=== PATIENT | female | born 1950 | race Caucasian/White ===

== ENCOUNTER 2016-11-24 12:26 | Observation (INO) | payer MEDICARE, BC ==
[~2016-11-24] VITALS: Ht 147.3 cm; Wt 141.0 kg
[~2016-11-24 12:26] MED LIST: ALBU8.5H3 INH; BENA10TA48 PO; CLON-379 PO; CLOT1L10 TOP; COLC0.6T6 PO; DULO60CA59 PO; FURO20TA3 PO; GABA300C16 PO; HYDR-2059 PO; IBUP-1542 PO; LORA-441 PO; LYRI200 PO; MECL25TA2 PO; METO100T13 PO; RESTOP4 BOTH EYES
[2016-11-24 12:30] VITALS: Ht 147.3 cm; Wt 141.0 kg
[2016-11-24] MEDS ORDERED: FUROSEMIDE 40 MG INJ IV STA (13:07)
[2016-11-24] MEDS ORDERED: NITROGLYCERIN 2% 1 GM OINT PKT TD STA (13:07)
[2016-11-24] MEDS ORDERED: ASPIRIN 81 MG TAB PO STA (13:07)
[2016-11-24 13:26] LABS: ADD SCAN DIFF NO
[2016-11-24 13:27] LABS: BASOPHIL # 0.1 10^3/ul (0.0-0.1); BASOPHILS % 0.7 % (0.0-2.0); EOSINOPHILS # 0.4 10^3/ul (0.0-0.5); EOSINOPHILS % 4.3 % (0.0-7.0); HEMATOCRIT 38.4 % (37.0-47.0); HEMOGLOBIN 12.7 g/dl (12.0-16.0); LYMPHOCYTES # 2.1 10^3/ul (0.8-2.9); LYMPHOCYTES % 24.4 % (15.0-51.0); MEAN CORPUSCULAR HEMOGLOBIN 30.8 pg (29.0-33.0); MEAN CORPUSCULAR HGB CONC 33.1 g/dl (32.0-37.0); MEAN PLATELET VOLUME 12.5 fl (7.4-10.4); MONOCYTE # 0.7 10^3/ul (0.3-0.9); MONOCYTES % 7.5 % (0.0-11.0); NEUTROPHIL # 5.4 10^3/ul (1.6-7.5); NEUTROPHILS % 62.8 % (39.0-77.0); PLATELET COUNT 185 10^3/UL (140-415); RED BLOOD COUNT 4.13 10^6/ul (4.20-5.40); RED CELL DISTRIBUTION WIDTH 13.2 % (11.5-14.5); WHITE BLOOD COUNT 8.6 10^3/ul (4.8-10.8)
[2016-11-24] MEDS ORDERED: NITROGLYCERIN (SL) 0.4 MG TAB SL PRN (13:30)
--- NOTE | 2016-11-24 13:35 | RADRPT ---
PROCEDURE: XR Chest. CLINICAL INDICATION: Chest pain. TECHNIQUE: Single frontal view. COMPARISON: 10/16/2015. FINDINGS: There are low lung volumes. There is mild diffuse bilateral interstitial pulmonary disease. The saúl ngs are otherwise clear. The heart size is normal. There is calcification in the aorta consistent with atherosclerosis. There is no pleural effusion. There is no pneumothorax. IMPRESSION: 1. Low lung volumes and mild interstitial disease bilaterally. This may indicate pulmonary edema. Clinical correlation advised. 2. Atherosclerosis. 3. Otherwise normal chest x-ray. RPTAT: QQ .Mulugeta Peña MD, Date Time Electronically viewed and signed by .Mulugeta Peña MD, on 11/24/2016 13:35 .R/
[2016-11-24 13:46] LABS: ANION GAP 9 (8-16); BLOOD UREA NITROGEN 13 mg/dl (7-20); CALCIUM 8.5 mg/dl (8.4-10.2); CARBON DIOXIDE 29 mmol/L (21-31); CHLORIDE 105 mmol/L (97-110); CREATININE 0.66 mg/dl (0.44-1.00); GLUCOSE 152 mg/dl (70-220); POTASSIUM 3.8 mmol/L (3.5-5.1); SODIUM 139 mmol/L (135-144)
[2016-11-24 13:53] LABS: INR 3.64; PROTIME 36.8 Sec (12.2-14.2); PT RATIO 2.9
[2016-11-24 14:00] LABS: PARTIAL THROMBOPLASTIN TIME 91.4 Sec (25.0-35.0)
[2016-11-24 14:05] LABS: TROPONIN-I < 0.012 ng/ml (0.00-0.12)
[2016-11-24] MEDS ORDERED: WARF10TA PO (14:20)
[2016-11-24] MEDS ORDERED: CILO50TA PO (14:21)
[2016-11-24] MEDS ORDERED: ROSU20TA PO (14:22)
[2016-11-24] MEDS ORDERED: PREG300C PO (14:23)
[2016-11-24] MEDS ORDERED: CYCL1DRO BOTH EYES (14:25)
[2016-11-24 14:30] VITALS: BP 158/90; RESP 18
[2016-11-24] MEDS ORDERED: ACETAMINOPHEN 325 MG TAB PO PRN (14:30)
[2016-11-24] MEDS ORDERED: ONDANSETRON 4 MG INJ IV PRN (14:30)
--- NOTE | 2016-11-24 15:22 | HP ---
Date/Time of Note Date/Time of Note DATE: 11/24/16 TIME: 15:03 Assessment/Plan VTE Prophylaxis VTE Prophylaxis Intervention: LMWH Lines/Catheters IV Catheter Type (from Nrsg): Saline Lock Assessment/Plan Assessment/Plan 66-year-old female who presents to the emergency room with bilateral extremity pain and swelling now managed as follows: 1. Acute CHF exacerbation 2. [place] LE edema likely 2/2 #1 3. Chronic neuropathy 4. CAD s/p LHC in the past 5. HTN 6. CAROL ANN PLAN : * admit tele / gentle diuresis / Complete ACS r/o / Cardio consult * resume home meds * Manage Coumadin Prophylaxis: Coumadin / Pepcid HPI/ROS Admit Date/Time Admit Date/Time 11/24/16 Hx of Present Illness 66-year-old female with a past medical history of high blood pressure, coronary artery disease, CHF amongst others who presents with bilateral lower extremity pain and swelling for the last 3 days. Patient does have chronic neuropathy, but this pain is said to be different from her regular pain. She has had some mild shortness of breath with exertion, but most of the time is fairly comfortable at rest. She denies chest pain, denies diaphoresis, denies palpitations. She also denies dysuria or hematuria, denies nausea vomiting. . ROS 12 point review if systems was done and pertinent findings are as noted. PMH/Family/Social Past Medical History * CAROL ANN * HTN * Morbid obesity * Chronic neuropathy Past Surgical History * lima knee replacement * C Family History Significant Family History: no pertinent family hx Social History Alcohol Use: none Smoking Status: Never smoker Exam/Review of Systems Vital Signs Vitals Laboratory Tests Test 11/24/16 13:20 White Blood Count 8.610^3/ul Red Blood Count 4.1310^6/ul Hemoglobin 12.7g/dl Hematocrit 38.4% Mean Corpuscular Volume 93.0fl Mean Corpuscular Hemoglobin 30.8pg Mean Corpuscular Hemoglobin Concent 33.1g/dl Red Cell Distribution Width 13.2% Platelet Count 51265^3/UL Mean Platelet Volume 12.5fl Neutrophils % 62.8% Lymphocytes % 24.4% Monocytes % 7.5% Eosinophils % 4.3% Basophils % 0.7% Nucleated Red Blood Cells % 0.0/100WBC Neutrophils # 5.410^3/ul Lymphocytes # 2.110^3/ul Monocytes # 0.710^3/ul Eosinophils # 0.410^3/ul Basophils # 0.110^3/ul Nucleated Red Blood Cells # 0.010^3/ul Prothrombin Time 36.8Sec Prothrombin Time Ratio 2.9 INR International Normalized Ratio 3.64 Activated Partial Thromboplast Time 91.4Sec Sodium Level 139mmol/L Potassium Level 3.8mmol/L Chloride Level 105mmol/L Carbon Dioxide Level 29mmol/L Anion Gap 9 Blood Urea Nitrogen 13mg/dl Creatinine 0.66mg/dl Glucose Level 152mg/dl Calcium Level 8.5mg/dl Troponin I < 0.012ng/ml Current Medications Medications (Trade) Dose Ordered Sig/Timbo Route PRN Reason Start Time Stop Time Status Last Admin Dose Admin Aspirin (Aspirin) 162 mg ONCE STAT PO 11/24/16 13:07 11/24/16 13:11 DC 11/24/16 13:29 162 MG Nitroglycerin (Nitroglycerin 2% Oint) 1 inch ONCE STAT TD 11/24/16 13:07 11/24/16 13:11 DC 11/24/16 13:30 1 INCH Nitroglycerin (Nitroglycerin (Sl Tab) 0.4 Mg) 1 tab Q5M UP TO 3 DOSES PRN SL CHEST PAIN 11/24/16 13:30 Furosemide (Lasix) 40 mg ONCE STAT IV 11/24/16 13:07 11/24/16 13:11 DC 11/24/16 13:29 40 MG Ondansetron HCl (Zofran Inj) 4 mg ER BRIDGE PRN IV NAUSEA AND/OR VOMITING 11/24/16 14:30 11/25/16 14:29 Acetaminophen (Tylenol Tab) 650 mg ER BRIDGE PRN PO MILD PAIN/FEVER 11/24/16 14:30 11/25/16 14:29 Vital Signs Date Time Temp Pulse Resp B/P Pulse Ox O2 Delivery O2 Flow Rate FiO2 11/24/16 12:30 98.7 114 24 202/94 97 Exam Exam Constitutional: alert, oriented, obesity Head: atraumatic, normocephalic Neck: non-tender, supple Respiratory: clear to auscultation, diminished breath sounds Cardiovascular: regular rate and rhythm Gastrointestinal: S/ NT / ND / +BS Extremities: + edema, good radial pulses Labs Result Diagram: 11/24/16 1320 11/24/16 1320 Procedures Procedures Laboratory Tests Test 11/24/16 13:20 White Blood Count 8.610^3/ul Red Blood Count 4.1310^6/ul Hemoglobin 12.7g/dl Hematocrit 38.4% Mean Corpuscular Volume 93.0fl Mean Corpuscular Hemoglobin 30.8pg Mean Corpuscular Hemoglobin Concent 33.1g/dl Red Cell Distribution Width 13.2% Platelet Count 66043^3/UL Mean Platelet Volume 12.5fl Neutrophils % 62.8% Lymphocytes % 24.4% Monocytes % 7.5% Eosinophils % 4.3% Basophils % 0.7% Nucleated Red Blood Cells % 0.0/100WBC Neutrophils # 5.410^3/ul Lymphocytes # 2.110^3/ul Monocytes # 0.710^3/ul Eosinophils # 0.410^3/ul Basophils # 0.110^3/ul Nucleated Red Blood Cells # 0.010^3/ul Prothrombin Time 36.8Sec Prothrombin Time Ratio 2.9 INR International Normalized Ratio 3.64 Activated Partial Thromboplast Time 91.4Sec Sodium Level 139mmol/L Potassium Level 3.8mmol/L Chloride Level 105mmol/L Carbon Dioxide Level 29mmol/L Anion Gap 9 Blood Urea Nitrogen 13mg/dl Creatinine 0.66mg/dl Glucose Level 152mg/dl Calcium Level 8.5mg/dl Troponin I < 0.012ng/ml Current Medications Medications (Trade) Dose Ordered Sig/Timbo Route PRN Reason Start Time Stop Time Status Last Admin Dose Admin Aspirin (Aspirin) 162 mg ONCE STAT PO 11/24/16 13:07 11/24/16 13:11 DC 11/24/16 13:29 162 MG Nitroglycerin (Nitroglycerin 2% Oint) 1 inch ONCE STAT TD 11/24/16 13:07 11/24/16 13:11 DC 11/24/16 13:30 1 INCH Nitroglycerin (Nitroglycerin (Sl Tab) 0.4 Mg) 1 tab Q5M UP TO 3 DOSES PRN SL CHEST PAIN 11/24/16 13:30 Furosemide (Lasix) 40 mg ONCE STAT IV 11/24/16 13:07 11/24/16 13:11 DC 11/24/16 13:29 40 MG Ondansetron HCl (Zofran Inj) 4 mg ER BRIDGE PRN IV NAUSEA AND/OR VOMITING 11/24/16 14:30 11/25/16 14:29 Acetaminophen (Tylenol Tab) 650 mg ER BRIDGE PRN PO MILD PAIN/FEVER 11/24/16 14:30 11/25/16 14:29 PROCEDURE: CTA Chest. CLINICAL INDICATION: Dyspnea TECHNIQUE: The study was performed utilizing a GE 64-slice multidetector CT scanner. Direct spiral 1 mm axial sections were obtained from the thoracic inlet to the upper abdomen with the use of 85 cc of Omnipaque 350 nonionic intravenous contrast material and reformatted at 3 mm. 3-D post processing multiplanar images are performed with sagittal and coronal re-formations. The images were reviewed on a PACS workstation. The CTDIvol is 50.66 mGy and the DLP is 573.65 mGycm. COMPARISON: Chest x-ray 10/16/[address] angiogram 06/04/2012 FINDINGS: The visualized base of the neck and bilateral thyroid lobes are normal. The mediastinum is remarkable for a vascular calcifications of the aorta. No evidence for aneurysms or dissection are present. The heart size is normal. No pericardial or pleural effusions are present. The central pulmonary arteries are without evidence for filling defect to suggest pulmonary embolus or thrombus. There is no evidence for an infiltrate. No abnormal soft tissue masses or nodular densities are visualized. The limited evaluation of the upper abdomen demonstrates normal appearance to the liver, spleen, pancreas, gallbladder, bilateral adrenal glands, and imaged kidneys. The osseous structures imaged demonstrate degenerative changes of the spine. IMPRESSION: 1. No CT evidence for pulmonary embolus. 2. Mild atherosclerotic vascular disease. 3. Mild degenerative changes of the spine. RPTAT: HDC .Joann Reyes MD, Date Time Electronically viewed and signed by .Joann Reyes MD, on 10/16/2015 18: 07 .C/ CC: DEANGELO GONZALEZ PROCEDURE: Lexiscan myocardial perfusion study CLINICAL INDICATION: 65 -year-old patient complaining of chest pain. TECHNIQUE: Lexiscan 0.4 mg intravenously separate acquisition gated myocardial perfusion SPECT using Tc 99m Myoview 34.1 mCi intravenously at stress and Tc-99m Myoview, 11.4 mCi intravenously at rest was performed using the rest/stress sequence. Poststress Myoview SPECT images were obtained in the supine position. COMPARISON: No prior studies. FINDINGS: Perfusion images reveal no evidence of perfusion defects. Lexiscan post stress gated SPECT images demonstrate no wall motion abnormalities. IMPRESSION: 1. No evidence of perfusion defects. 2. No wall motion abnormalities. 3. The left ventricle ejection fraction at stress is 65%. A call report was made to Dr. Galindo at 02:29 p.m. on October 17, 2015. RPTAT: HH .Leah Christensen MD, Date Time Electronically viewed and signed by .Leah Christensen MD, on 10/17/2015 14:31 .L/ CC: JAIMIE GALINDO MD Echocardiogram Report Patient Name: MADISYN SANCHEZ Gender: Female Date: 1950 Study Date: 17-Oct-2015 Spring Tacker: Fredrick Hudson RDCS Location: [id number] Ref. Physician: INOCENTE SMITH Quality: Technically Difficult Study Procedures: Transthoracic echocardiogram with complete 2D, M-Mode, and doppler examination. Indications: Chest Pain. 2D/M Mode Doppler Measurement Value Normal Ranges Measurement Value Normal Ranges LVIDd 2D 5.0 3.5 - 5.6 cm AV Peak Jhoan 1.0 m/sec LVIDs 2D 1.9 2.1 - 4.1 cm AV Peak PG 4.0 mmHg FS 2D 63.3 % AI Peak PG 36.0 mmHg LVPWd 2D 1.1 0.6 - 1.1 cm AI Peak Jhoan 3.0 m/sec IVSd 2D 0.9 0.6 - 1.1 cm AI PHT 800.0 msec IVS/LVPW 2D 0.9 LVOT Peak Jhoan 0.8 m/sec AoR Diam 2D 3.3 2.0 - 3.7 cm LVOT Peak PG 2.0 mmHg LA/Ao 2D 1 0 - 1 MV E Peak Jhoan 0.8 m/sec EDV 2D 128.0 cm3 MV A Peak Jhoan 1.0 m/sec ESV 2D 6.3 cm3 MV E/A 0.8 LA Dimen 2D 3.7 2.3 - 4.0 cm MV Decel Time 169 msec MV E/A 0.8 TR Peak Jhoan 2.3 m/sec TR Peak PG 22.0 mmHg RVSP 25.0 mmHg Findings Left Ventricle: Normal left ventricular systolic function. Normal left ventricular cavity size. Normal left ventricular wall thickness. Ejection fraction is visually estimated at 55 %. Tissue Doppler/Mitral Doppler indices are consistent with impaired relaxation (Stage I diastolic dysfunction). Right Ventricle: Normal right ventricular size. Normal right ventricular systolic function. Left Atrium: The left atrium is normal in size. Right Atrium: The right atrium is normal in size. Mitral Valve: Normal appearance and function of the mitral valve with trace physiologic regurgitation. Aortic Valve: No hemodynamically significant aortic stenosis by doppler. Aortic cusps appear mildly calcified. Mild to moderate aortic valve regurgitation. Tricuspid Valve: Normal appearance of the tricuspid valve. Estimated peak PA systolic pressure 25 mmHg. There is mild tricuspid regurgitation. Pulmonic Valve: Normal pulmonic valve appearance. Pericardium: Normal pericardium with no significant pericardial effusion. Aorta: Normal aortic root. IVC: Normal size and normal respiratory collapse consistent with normal right atrial pressure. Pulmonary Artery: Normal pulmonary artery size. Conclusions 1. Normal left ventricular systolic function. Normal left ventricular cavity size. Normal left ventricular wall thickness. Ejection fraction is visually estimated at 55 %. Tissue Doppler/Mitral Doppler indices are consistent with impaired relaxation (Stage I diastolic dysfunction). These segments of the LV are hypokinetic septum base segment and inferior base segment. 2. Normal appearance and function of the mitral valve with trace physiologic regurgitation. 3. No hemodynamically significant aortic stenosis by doppler. Aortic cusps appear mildly calcified. Mild to moderate aortic valve regurgitation. 4. Normal appearance of the tricuspid valve. Estimated peak PA systolic pressure 25 mmHg. There is mild tricuspid regurgitation. Electronically Signed By: Tomasz Rendon 17-Oct-2015 12:18:54 -0700 Patient Name: MADISYN SANCHEZ Study Date: 17-Oct-2015 [id number] PROCEDURE: XR Chest. CLINICAL INDICATION: Chest pain. TECHNIQUE: Single frontal view. COMPARISON: 10/16/2015. FINDINGS: There are low lung volumes. There is mild diffuse bilateral interstitial pulmonary disease. The lungs are otherwise clear. The heart size is normal. There is calcification in the aorta consistent with atherosclerosis. There is no pleural effusion. There is no pneumothorax. IMPRESSION: 1. Low lung volumes and mild interstitial disease bilaterally. This may indicate pulmonary edema. Clinical correlation advised. 2. Atherosclerosis. 3. Otherwise normal chest x-ray. RPTAT: QQ .Mulugeta Peña MD, MD Date Time Electronically viewed and signed by .Mulugeta Peña MD, MD on 11/24/2016 13:35 .R/ CC: SHARON MUNOZ MD EKG read by me: Rate/Rhythm: Regular rate and rhythm at a normal rate Intervals: Normal Impression: No evidence of ischemia or arrhythmia PROCEDURE: US bilateral lower extremity veins. CLINICAL INDICATION: Bilateral leg pain and swelling. TECHNIQUE: Multiple longitudinal and transverse images of the bilateral lower extremity veins were obtained with pedraza scale and color Doppler imaging. The common femoral vein, femoral vein, and popliteal vein were evaluated. 2D grayscale measurements with compression sonography, color Doppler, and pulsed Doppler with augmentation. COMPARISON: No prior studies are available for comparison. FINDINGS: The right common femoral, femoral and popliteal veins are normally compressible throughout. Color flow demonstrates normal filling of the vessels. Normal waveforms are visualized and there is normal response to augmentation. The left common femoral and popliteal veins are normally compressible throughout. Color flow demonstrates normal filling of the vessels. Normal waveforms are visualized and there is normal response to augmentation. The left femoral vein is not well seen proximally due to patient body habitus. The mid and distal portions are well seen and appear normal with normal flow and compressibility. IMPRESSION: 1. No evidence of deep vein thrombosis involving the visualized veins either lower extremity. 2. Left femoral vein not well seen proximally due to patient body habitus. RPTAT: QQ .Mulugeta Peña MD, MD Date Time Electronically viewed and signed by .Mulugeta Peña MD, on 11/24/2016 15:45 .R/ CC: SHARON MUNOZ MD, BOLATITO M. Nov 24, 2016 15:14
[2016-11-24] MEDS ORDERED: LABETALOL HCL 20MG INJ IV PRN (15:30)
[2016-11-24] MEDS ORDERED: ALBUTEROL 18 GM INHALER INH PRN (15:30)
--- NOTE | 2016-11-24 15:31 | ERA ---
ER Documentation Chief Complaint Date/Time DATE: 11/24/16 TIME: 15:29 Chief Complaint BILATERAL LEG SWELLING/PAIN X 3 DAYS HPI Patient is a 66-year-old female with CHF, hypertension, and high cholesterol who presents with lower extremity swelling. The patient has had bilateral lower extremity swelling since Thursday. She has a cough and shortness of breath. She denies chest pain. 3 years ago she was found to have fluid on her lungs. She has had no fevers. Upon review of old medical records this is the patient's seventh visit to the ER since 2010. ROS All systems reviewed and are negative except as per history of present illness. Medications Home Meds Reported Medications Cyclosporine (RESTASIS) 1 Each Droperette, 1 DROP BOTH EYES Q12, #1 BOX 11/24/16 Pregabalin* (Lyrica*) 300 Mg Capsule, 300 MG PO BID, CAP 11/24/16 Rosuvastatin Calcium* (Crestor*) 20 Mg Tablet, 20 MG PO QHS, #30 TAB 11/24/16 Cilostazol* (Cilostazol*) 50 Mg Tablet, 50 MG PO BID, TAB 11/24/16 Warfarin Sodium* (Coumadin*) 10 Mg Tablet, 10 MG PO DAILY, TAB 11/24/16 Clonidine Hcl* (Clonidine Hcl*) 0.1 Mg Tab, 0.1 MG PO BID Y for ELEVATED BLOOD PRESSURE, TAB 10/03/15 Metoprolol Succinate* (Toprol XL*) 100 Mg Tab.sr.24h, 100 MG PO Q12, #30 TAB 10/03/15 Benazepril Hcl* (Benazepril Hcl*) 10 Mg Tablet, 10 MG PO BID, #60 TAB 10/03/15 Furosemide* (Furosemide*) 20 Mg Tablet, 20 MG PO DAILY, #60 TAB 10/03/15 Colchicine* (Colcrys*) 0.6 Mg Tablet, 0.6 MG PO DAILY, TAB 10/03/15 Duloxetine Hcl* (Duloxetine Hcl*) 60 Mg Capsule.dr, 60 MG PO DAILY, #30 CAP 10/03/15 Gabapentin* (Gabapentin*) 300 Mg Capsule, 300 MG PO TID, #90 CAP 10/03/15 Albuterol Sulfate* (Proair HFA*) 8.5 Gm Hfa.aer.ad, 2 PUFF INH Q4H Y for WHEEZING AND SOB, #1 INHALER 10/03/15 Hydrocodone Bit-Acetaminophen* (Hydrocodone-APAP*) 10-325 Tablet, 1 TAB PO BID Y for PAIN, TAB 10/03/15 Discontinued Reported Medications Cyclosporine* (Restasis* Oph) 32 Ea Droperette, 1 DROP BOTH EYES Q12, #1 BOX 10/03/15 Ibuprofen* (Motrin*) 600 Mg Tab, 600 MG PO BID Y for PAIN, TAB 10/03/15 Pregabalin* (Lyrica*) 200 Mg Capsule, 200 MG PO BID, CAP 10/03/15 Clotrimazole* (Lotrimin*) 1%-10 Ml Solution, 1 APPLIC TOP BID, BOTTLE 10/03/15 Discontinued Scripts Meclizine Hcl* (Antivert*) 25 Mg Tablet, 25 MG PO Q6H Y for DIZZINESS, #20 TAB Prov:CARLOS,DEANGELO 10/03/15 Lorazepam* (Ativan*) 0.5 Mg Tablet, 0.5 MG PO Q8H Y for ANXIETY, #10 TAB Prov:CARLOS,DEANGELO 10/03/15 Allergies Allergies: Coded Allergies: No Known Drug Allergies (Verified Allergy, Mild, 11/24/16) PMhx/Soc History of Surgery: Yes ([place]. knee replacement, L heart cath) Anesthesia Reaction: No Hx Neurological Disorder: Yes (Neuropathy) Hx Respiratory Disorders: Yes (Asthma, nocturnal dyspnea) Hx Cardiac Disorders: Yes (HTN,CHF,CAD) Hx Psychiatric Problems: No Hx Miscellaneous Medical Probl: Yes (Anxiety, Depression,Obesity) Hx Alcohol Use: Yes (occasional, stopped 20 yrs ago) Hx Substance Use: No Hx Tobacco Use: No Smoking Status: Never smoker FmHx Family History: No diabetes Physical Exam Vitals Vital Signs Date Time Temp Pulse Resp B/P Pulse Ox O2 Delivery O2 Flow Rate FiO2 11/24/16 15:05 98 24 141/110 97 11/24/16 12:30 98.7 114 24 202/94 97 Physical Exam Const: Moderate distress secondary to shortness of breath Head: Atraumatic Eyes: Normal Conjunctiva ENT: Normal External Ears, Nose and Mouth. Neck: Full range of motion..~ No meningismus. Resp: Decreased breath sounds bilaterally Cardio: Regular rate and rhythm, no murmurs Abd: Soft, non tender, non distended. Normal bowel sounds Skin: No petechiae or rashes Back: No midline or flank tenderness Ext: Bilateral lower extremity edema Neur: Awake and alert Psych: Normal Mood and Affect Result Diagram: 11/24/16 1320 11/24/16 1320 Results 24 hrs Laboratory Tests Test 11/24/16 13:20 White Blood Count 8.610^3/ul Red Blood Count 4.1310^6/ul Hemoglobin 12.7g/dl Hematocrit 38.4% Mean Corpuscular Volume 93.0fl Mean Corpuscular Hemoglobin 30.8pg Mean Corpuscular Hemoglobin Concent 33.1g/dl Red Cell Distribution Width 13.2% Platelet Count 35278^3/UL Mean Platelet Volume 12.5fl Neutrophils % 62.8% Lymphocytes % 24.4% Monocytes % 7.5% Eosinophils % 4.3% Basophils % 0.7% Nucleated Red Blood Cells % 0.0/100WBC Neutrophils # 5.410^3/ul Lymphocytes # 2.110^3/ul Monocytes # 0.710^3/ul Eosinophils # 0.410^3/ul Basophils # 0.110^3/ul Nucleated Red Blood Cells # 0.010^3/ul Prothrombin Time 36.8Sec Prothrombin Time Ratio 2.9 INR International Normalized Ratio 3.64 Activated Partial Thromboplast Time 91.4Sec Sodium Level 139mmol/L Potassium Level 3.8mmol/L Chloride Level 105mmol/L Carbon Dioxide Level 29mmol/L Anion Gap 9 Blood Urea Nitrogen 13mg/dl Creatinine 0.66mg/dl Glucose Level 152mg/dl Calcium Level 8.5mg/dl Troponin I < 0.012ng/ml Current Medications Medications (Trade) Dose Ordered Sig/Timbo Route PRN Reason Start Time Stop Time Status Last Admin Dose Admin Aspirin (Aspirin) 162 mg ONCE STAT PO 11/24/16 13:07 11/24/16 13:11 DC 11/24/16 13:29 Nitroglycerin (Nitroglycerin 2% Oint) 1 inch ONCE STAT TD 11/24/16 13:07 11/24/16 13:11 DC 11/24/16 13:30 Nitroglycerin (Nitroglycerin (Sl Tab) 0.4 Mg) 1 tab Q5M UP TO 3 DOSES PRN SL CHEST PAIN 11/24/16 13:30 Furosemide (Lasix) 40 mg ONCE STAT IV 11/24/16 13:07 11/24/16 13:11 DC 11/24/16 13:29 Ondansetron HCl (Zofran Inj) 4 mg ER BRIDGE PRN IV NAUSEA AND/OR VOMITING 11/24/16 14:30 11/25/16 14:29 Acetaminophen (Tylenol Tab) 650 mg ER BRIDGE PRN PO MILD PAIN/FEVER 11/24/16 14:30 11/25/16 14:29 Labetalol HCl (Labetalol) 20 mg Q4H PRN IV SBP>170MMHG 11/24/16 15:30 Procedures/MDM Chest x-ray shows pulmonary edema per radiology. EKG read by me: Rate/Rhythm: Regular rate and rhythm at a normal rate Intervals: Normal Impression: No evidence of ischemia or arrhythmia Patient is a 66-year-old female presents with what appears to be an acute CHF exacerbation. She was given aspirin, nitroglycerin, and Lasix. I do believe the patient will require admission to a telemetry bed for further evaluation. I spoke with Dr. Calvo from the panel team. At this point I doubt pneumonia, pneumothorax, pulmonary embolism, or aortic dissection. Departure Diagnosis: Primary Impression: Swelling Additional Impression: Acute congestive heart failure Qualified Code: I50.9 - Acute congestive heart failure, unspecified congestive heart failure type Condition: SHARON Rizvi MD Nov 24, 2016 15:31
--- NOTE | 2016-11-24 15:45 | RADRPT ---
PROCEDURE: US bilateral lower extremity veins. CLINICAL INDICATION: Bilateral leg pain and swelling. TECHNIQUE: Multiple longitudinal and transverse images of the bilateral lower extremity veins were obtained with pedraza scale and color Doppler imaging. The common femoral vein, femoral vein, and popl iteal vein were evaluated. 2D grayscale measurements with compression sonography, color Doppler, and pulsed Doppler with augmentation. COMPARISON: No prior studies are available for comparison. FINDINGS: The right common femoral, femoral and popliteal veins are normally compressible throughout. Color f low demonstrates normal filling of the vessels. Normal waveforms are visualized and there is normal response to augmentation. The left common femoral and popliteal veins are normally compressible throughout. Color flow demons trates normal filling of the vessels. Normal waveforms are visualized and there is normal response to augmentation. The left femoral vein is not well seen proximally due to patient body habitus. Th e mid and distal portions are well seen and appear normal with normal flow and compressibility. IMPRESSION: 1. No evidence of deep vein thrombosis involving the visualized veins either lower extremity. 2. Left femoral vein not well seen proximally due to patient body habitus. RPTAT: QQ .Mulugeta Peña MD, Date Time Electronically viewed and signed by .Mulugeta Peña MD, on 11/24/2016 15:45 .R/
[2016-11-24 16:24] VITALS: TEMP 98.5
[2016-11-24 17:06] VITALS: PULSE 94
[2016-11-24 19:37] VITALS: BP 159/96; RESP 18
[2016-11-24 20:00] VITALS: BP 162/86; RESP 20
[2016-11-24 20:19] VITALS: PULSE 110
[2016-11-24 20:41] LABS: CREATINE KINASE 197 IU/L (23-200)
[2016-11-24] MEDS: FUROSEMIDE 40 MG INJ IV SCH (20:52)
[2016-11-24 20:53] LABS: CK-MB 1.48 ng/ml (0.0-2.4)
[2016-11-24] MEDS: PREGABALIN 100 MG CAP PO SCH (20:53)
[2016-11-24 20:54] LABS: TROPONIN-I < 0.012 ng/ml (0.00-0.12)
[2016-11-24] MEDS: BENAZEPRIL 5 MG TAB PO SCH (20:54)
[2016-11-24] MEDS: CYCLOSPORINE 0.05% OPH DROPERETTE BOTH EYES SCH (20:55)
[2016-11-24] MEDS: CILOSTAZOL 100 MG TAB PO SCH (20:59)
[2016-11-24] MEDS ORDERED: ATORVASTATIN 80 MG TAB PO SCH (21:00)
[2016-11-24] MEDS: HYDROCODONE/APAP (10/325) TAB PO PRN (21:02)
[2016-11-25] VITALS (9 sets, daily range): BP systolic 101–163; BP diastolic 54–81; PULSE 69–90; RESP 16–20
[2016-11-25 01:19] LABS: CREATINE KINASE 197 IU/L (23-200)
[2016-11-25 01:33] LABS: CK-MB 1.48 ng/ml (0.0-2.4)
[2016-11-25 01:40] LABS: TROPONIN-I < 0.012 ng/ml (0.00-0.12)
[2016-11-25] MEDS: HYDROCODONE/APAP (10/325) TAB PO PRN (04:13)
[2016-11-25] MEDS: PREGABALIN 100 MG CAP PO SCH (06:40)
[2016-11-25] MEDS: FUROSEMIDE 40 MG INJ IV SCH ×2 (08:12→17:51)
[2016-11-25] MEDS: CILOSTAZOL 100 MG TAB PO SCH (08:14)
[2016-11-25] MEDS: CYCLOSPORINE 0.05% OPH DROPERETTE BOTH EYES SCH (08:16)
[2016-11-25] MEDS: BENAZEPRIL 5 MG TAB PO SCH (08:16)
[2016-11-25] MEDS ORDERED: METOPROLOL (XL) 100 MG TAB PO SCH (09:00)
[2016-11-25] MEDS ORDERED: DULOXETINE 30 MG CAP DR PO SCH (09:00)
[2016-11-25 10:32] LABS: ADD SCAN DIFF NO
[2016-11-25 10:39] LABS: BASOPHILS % 0.4 % (0.0-2.0); EOSINOPHILS # 0.4 10^3/ul (0.0-0.5); EOSINOPHILS % 5.1 % (0.0-7.0); HEMATOCRIT 41.2 % (37.0-47.0); HEMOGLOBIN 13.3 g/dl (12.0-16.0); LYMPHOCYTES # 2.3 10^3/ul (0.8-2.9); LYMPHOCYTES % 29.8 % (15.0-51.0); MEAN CORPUSCULAR HEMOGLOBIN 30.4 pg (29.0-33.0); MEAN CORPUSCULAR HGB CONC 32.3 g/dl (32.0-37.0); MEAN CORPUSCULAR VOLUME 94.1 fl (82.0-101.0); MEAN PLATELET VOLUME 12.7 fl (7.4-10.4); MONOCYTE # 0.6 10^3/ul (0.3-0.9); MONOCYTES % 8.3 % (0.0-11.0); NEUTROPHIL # 4.3 10^3/ul (1.6-7.5); NEUTROPHILS % 56.1 % (39.0-77.0); PLATELET COUNT 214 10^3/UL (140-415); RED BLOOD COUNT 4.38 10^6/ul (4.20-5.40); RED CELL DISTRIBUTION WIDTH 13.2 % (11.5-14.5); WHITE BLOOD COUNT 7.7 10^3/ul (4.8-10.8)
[2016-11-25 10:53] LABS: INR 2.78; PROTIME 29.7 Sec (12.2-14.2); PT RATIO 2.3
[2016-11-25 10:58] LABS: CALCIUM 8.5 mg/dl (8.4-10.2); CREATININE 0.74 mg/dl (0.44-1.00); PHOSPHORUS 3.8 mg/dl (2.5-4.9)
[2016-11-25 11:01] LABS: PARTIAL THROMBOPLASTIN TIME 84.4 Sec (25.0-35.0)
--- NOTE | 2016-11-25 12:05 | CONS ---
Date/Time of Note Date/Time of Note DATE: 11/25/16 TIME: 12:03 Assessment/Plan Assessment/Plan Additional Assessment/Plan 1. Acute CHF exacerbation - con't diuresis, better now 2. [place] LE edema likely 2/2 #1 - Rx with diuretics now 3. Chronic neuropathy - stable 4. CAD s/p LHC in the past - no CP now, will follow 5. HTN - will Rx - will follow 6. CAROL ANN Consultation Date/Type/Reason Admit Date/Time Nov 24, 2016 at 14:29 Initial Consult Date 24 HR Interval Summary Free Text/Dictation No acute change - BP stable - con't Diureses ROS: No fever, no chills, no nausea, no vomiting, no diarrhea/constipation No recent weight changes No chest pain, no PND, no orthopnea - SOB better No dizziness, blurred vision No thirst, no heat or cold intolerance Exam/Review of Systems Vital Signs Vitals Vital Signs Date Time Temp Pulse Resp B/P Pulse Ox O2 Delivery O2 Flow Rate FiO2 11/25/16 11:58 98.2 69 18 101/54 96 11/24/16 16:24 Room Air Intake and Output 11/24/16 11/24/16 11/25/16 15:00 23:00 07:00 Intake Total 300 ml Balance 300 ml Exam General: WN/WD/NAD, AOx 2-3 HEENT: Unicetric/atraumatic/EOMI (follow commands) NECK: JVD elevated, no thyromegaly Lymph: no lymphadenopathy HEART: regular with no S3, II/ systolic murmur at apex LUNGS: Coarse sounds ABD: soft, NT, ND, +BS : Intact Neuro: non focal SKIN: chronic changes EXT: trace edema Results Result Diagram: 11/25/16 0949 11/25/16 0949 Results 24 hrs Laboratory Tests Test 11/24/16 13:20 11/24/16 19:50 11/25/16 00:25 11/25/16 09:44 White Blood Count 8.6 Red Blood Count 4.13 L Hemoglobin 12.7 Hematocrit 38.4 Mean Corpuscular Volume 93.0 Mean Corpuscular Hemoglobin 30.8 Mean Corpuscular Hemoglobin Concent 33.1 Red Cell Distribution Width 13.2 Platelet Count 185 Mean Platelet Volume 12.5 H Neutrophils % 62.8 Lymphocytes % 24.4 Monocytes % 7.5 Eosinophils % 4.3 Basophils % 0.7 Nucleated Red Blood Cells % 0.0 Neutrophils # 5.4 Lymphocytes # 2.1 Monocytes # 0.7 Eosinophils # 0.4 Basophils # 0.1 Nucleated Red Blood Cells # 0.0 Prothrombin Time 36.8 H 29.7 H Prothrombin Time Ratio 2.9 2.3 INR International Normalized Ratio 3.64 2.78 Activated Partial Thromboplast Time 91.4 *H 84.4 *H Sodium Level 139 Potassium Level 3.8 Chloride Level 105 Carbon Dioxide Level 29 Anion Gap 9 Blood Urea Nitrogen 13 Creatinine 0.66 Glucose Level 152 Calcium Level 8.5 Troponin I < 0.012 < 0.012 < 0.012 Creatine Kinase 197 197 Creatine Kinase Index 0.8 0.8 Creatinine Kinase MB (Mass) 1.48 1.48 Test 11/25/16 09:49 White Blood Count 7.7 Red Blood Count 4.38 Hemoglobin 13.3 Hematocrit 41.2 Mean Corpuscular Volume 94.1 Mean Corpuscular Hemoglobin 30.4 Mean Corpuscular Hemoglobin Concent 32.3 Red Cell Distribution Width 13.2 Platelet Count 214 Mean Platelet Volume 12.7 H Neutrophils % 56.1 Lymphocytes % 29.8 Monocytes % 8.3 Eosinophils % 5.1 Basophils % 0.4 Nucleated Red Blood Cells % 0.0 Neutrophils # 4.3 Lymphocytes # 2.3 Monocytes # 0.6 Eosinophils # 0.4 Basophils # 0.0 Nucleated Red Blood Cells # 0.0 Sodium Level 134 L Potassium Level 4.0 Chloride Level 94 #L Carbon Dioxide Level 37 H Anion Gap 7 L Blood Urea Nitrogen 16 Creatinine 0.74 Glucose Level 122 Calcium Level 8.5 Phosphorus Level 3.8 Magnesium Level 2.0 Medications Medications Current Medications Labetalol HCl (Labetalol) 20 mg Q4H PRN IV SBP>170MMHG; Start 11/24/16 at 15:30 Albuterol (Ventolin Hfa) 2 puff Q4H PRN INH WHEEZING AND SOB; Start 11/24/16 at 15:30 Benazepril HCl (Lotensin) 7.5 mg BID PO Last administered on 11/25/16 08:16; Admin Dose 7.5 MG; Start 11/24/16 at 21:00 Cilostazol (Pletal) 50 mg BID PO Last administered on 11/25/16 08:14; Admin Dose 50 MG; Start 11/24/16 at 21:00 Cyclosporine (Restasis) 1 drop Q12 BOTH EYES Last administered on 11/25/16 08: 16; Admin Dose 1 DROP; Start 11/24/16 at 21:00 Duloxetine HCl (Cymbalta) 60 mg DAILY PO Last administered on 11/25/16 08:14; Admin Dose 60 MG; Start 11/25/16 at 09:00 Furosemide (Lasix) 20 mg DAILY PO ; Start 11/26/16 at 09:00 Acetaminophen/ Hydrocodone Bitart ([place] (10325)) 1 tab BID PRN PO PAIN Last administered on 11/25/16 04:13; Admin Dose 1 TAB; Start 11/24/16 at 15:30 Metoprolol Succinate (Toprol Xl) 100 mg DAILY PO Last administered on 08:14; Admin Dose 100 MG; Start 11/25/16 at 09:00 Pregabalin (Lyrica) 300 mg BID PO Last administered on 11/25/16 06:40; Admin Dose 300 MG; Start 11/24/16 at 21:00 Warfarin Sodium (Coumadin) 7.5 mg DAILY@17 PO ; Start 11/25/16 at 17:00; Status Future Hold Atorvastatin Calcium (Lipitor) 80 mg QHS PO Last administered on 11/24/16 20: 53; Admin Dose 80 MG; Start 11/24/16 at 21:00 Furosemide (Lasix) 40 mg Q12 IV Last administered on 11/25/16 08:12; Admin Dose 40 MG; Start 11/24/16 at 21:00; Stop 11/25/16 at 21:01 JAIMIE BTEANCOURT MD Nov 25, 2016 12:05
[2016-11-25] MEDS ORDERED: POTA8CAP PO (13:46)
[2016-11-25] MEDS ORDERED: LAS20 PO (13:46)
[2016-11-25] MEDS ORDERED: COU75 PO (13:46)
[2016-11-25] MEDS ORDERED: GABA300C16 PO (13:46)
[2016-11-25] MEDS ORDERED: METO100T13 PO (13:46)
--- NOTE | 2016-11-25 13:47 | PDOCDIS ---
Discharge Instructions DIAGNOSIS Discharge Diagnosis CHF exacerbation Neuropathic pain CONDITION Patient Condition: Stable HOME CARE INSTRUCTIONS: Diet Instructions: Low Fat /Cholesterol ACTIVITY: Activity Restrictions: Slowly Increase Activity Rest between Activity FOLLOW UP/APPOINTMENTS Follow-up Plan followup with your PCP and CORAZON Pozo Nov 25, 2016 13:47
[2016-11-25] MEDS ORDERED: WARFARIN 7.5 MG TAB PO SCH (17:00)
--- NOTE | 2016-11-25 17:17 | RADRPT ---
Vent Rate: 77 bpm RR Interval: 0 msec TN Interval: 156 msec QRS Duration: 76 msec QT Interval: 426 msec QTC Interval: 482 msec P-R-T [place]: -9 - 12 - 26 degrees Normal sinus rhythm Cannot rule out Anterior infarct , age undetermined Abnormal ECG Electronically Signed By: Rogelio Morris [id number]
[2016-11-26] MEDS ORDERED: FUROSEMIDE 20 MG TAB PO SCH (09:00)
--- NOTE | 2016-11-27 18:43 | DS ---
Date/Time of Note Date/Time of Note DATE: 11/27/16 TIME: 18:41 Discharge Summary Admission/Discharge Info Admit Date/Time Nov 24, 2016 at 14:29 Discharge Date/Time Nov 25, 2016 at 18:23 Discharge Diagnosis CHF exacerbation Neuropathic pain Patient Condition: Stable Consults Cardiology: Josie . Hx of Present Illness 66-year-old female with a past medical history of high blood pressure, coronary artery disease, CHF amongst others who presents with bilateral lower extremity pain and swelling for the last 3 days. Patient does have chronic neuropathy, but this pain is said to be different from her regular pain. She has had some mild shortness of breath with exertion, but most of the time is fairly comfortable at rest. She denies chest pain, denies diaphoresis, denies palpitations. She also denies dysuria or hematuria, denies nausea vomiting. . Hospital Course Patient had called male with bilateral lower extremity pain shooting to her heels with lower extremity swelling. She was found to have CHF exacerbation likely causing edema which was worsening her chronic peripheral neuropathy. She was already on maximum dose of Lyrica as well as gabapentin for neuropathy prior to admission. She was diuresed with Lasix therapy and by day 2 of admission her pain had improved significantly as she was feeling much better. She was counseled on the need for compliance with Lasix therapy, per her family the patient chose to use Lasix whenever she felt like. She is encouraged to follow-up outpatient with her own primary care physician to further discuss therapies for peripheral neuropathy as well as with her publicity expert Dr. Rendon for continued management of her chronic congestive heart failure. She verbalized understanding. She was counseled on the need for weight loss and good diet, patient was noncompliant with healthy diet even while in the hospital. She is stable for outpatient follow-up. . Home Meds Active Scripts Potassium Chloride* (Potassium Chloride*) 8 Meq Capsule.er, 8 MEQ PO DAILY for 30 Days, CAP Prov:CORAZON FRANKS. 11/25/16 Furosemide (Lasix) 20 Mg Tab, 40 MG PO DAILY for 30 Days, TAB Prov:CORAZON FRANKS. 11/25/16 Warfarin Sodium (Coumadin) 7.5 Mg Tablet, 7.5 MG PO DAILY@17 for 14 Days, TAB Prov:CORAZON FRANKS. 11/25/16 Metoprolol Succinate* (Toprol XL*) 100 Mg Tab.sr.24h, 100 MG PO DAILY, #30 TAB Prov:CORAZON FRANKS. 11/25/16 Gabapentin* (Gabapentin*) 300 Mg Capsule, 450 MG PO TID, #90 CAP Prov:CORAZON FRANKS. 11/25/16 Reported Medications Cyclosporine (RESTASIS) 1 Each Droperette, 1 DROP BOTH EYES Q12, #1 BOX 11/24/16 Pregabalin* (Lyrica*) 300 Mg Capsule, 300 MG PO BID, CAP 11/24/16 Rosuvastatin Calcium* (Crestor*) 20 Mg Tablet, 20 MG PO QHS, #30 TAB 11/24/16 Cilostazol* (Cilostazol*) 50 Mg Tablet, 50 MG PO BID, TAB 11/24/16 Clonidine Hcl* (Clonidine Hcl*) 0.1 Mg Tab, 0.1 MG PO BID Y for ELEVATED BLOOD PRESSURE, TAB 10/03/15 Benazepril Hcl* (Benazepril Hcl*) 10 Mg Tablet, 10 MG PO BID, #60 TAB 10/03/15 Colchicine* (Colcrys*) 0.6 Mg Tablet, 0.6 MG PO DAILY, TAB 10/03/15 Duloxetine Hcl* (Duloxetine Hcl*) 60 Mg Capsule.dr, 60 MG PO DAILY, #30 CAP 10/03/15 Albuterol Sulfate* (Proair HFA*) 8.5 Gm Hfa.aer.ad, 2 PUFF INH Q4H Y for WHEEZING AND SOB, #1 INHALER 10/03/15 Hydrocodone Bit-Acetaminophen* (Hydrocodone-APAP*) 10-325 Tablet, 1 TAB PO BID Y for PAIN, TAB 10/03/15 Discontinued Reported Medications Warfarin Sodium* (Coumadin*) 10 Mg Tablet, 10 MG PO DAILY, TAB 11/24/16 Furosemide* (Furosemide*) 20 Mg Tablet, 20 MG PO DAILY, #60 TAB 10/03/15 Cyclosporine* (Restasis* Oph) 32 Ea Droperette, 1 DROP BOTH EYES Q12, #1 BOX 10/03/15 Ibuprofen* (Motrin*) 600 Mg Tab, 600 MG PO BID Y for PAIN, TAB 10/03/15 Pregabalin* (Lyrica*) 200 Mg Capsule, 200 MG PO BID, CAP 10/03/15 Clotrimazole* (Lotrimin*) 1%-10 Ml Solution, 1 APPLIC TOP BID, BOTTLE 10/03/15 Discontinued Scripts Meclizine Hcl* (Antivert*) 25 Mg Tablet, 25 MG PO Q6H Y for DIZZINESS, #20 TAB Prov:DEANGELO GONZALEZ 10/03/15 Lorazepam* (Ativan*) 0.5 Mg Tablet, 0.5 MG PO Q8H Y for ANXIETY, #10 TAB Prov:DEANGELO GONZALEZ 10/03/15 Follow-up Plan See hospital course . Primary Care Provider Not On Staff Doctor Time spent on discharge: > 30 minutes CORAZON FRANKS Nov 27, 2016 18:43
== END 2016-11-25 18:23 | disposition home or self-care (01) ==
LOC: E/R 12:26 → TEL 14:29
PROVIDERS: ADMIT Family Medicine; ATTEND Family Medicine
DX: I11.0 Hypertensive heart disease with heart failure (principal); I50.9 Heart failure, unspecified; I25.10 Atherosclerotic heart disease of native coronary artery without angina pectoris; Z98.61 Coronary angioplasty status; J45.909 Unspecified asthma, uncomplicated; G62.9 Polyneuropathy, unspecified; F41.1 Generalized anxiety disorder; E66.01 Morbid (severe) obesity due to excess calories; Z68.44 Body mass index [BMI] 60.0-69.9, adult; Z79.01 Long term (current) use of anticoagulants; Z96.653 Presence of artificial knee joint, bilateral
CPT/HCPCS: 36415; 71010; 80048; 82550; 82553; 83036; 83735; 84100; 84484; 85025; 85610; 85730; 93005; 93970; 96374; 99285; G0378; J1940

== ENCOUNTER 2017-01-18 13:02 | Emergency (ER) | payer BC, MEDICARE ==
[~2017-01-18] VITALS: Ht 157.5 cm; Wt 136.0 kg
[~2017-01-18 13:02] MED LIST changes: +CILO50TA PO; -CLOT1L10 TOP; +COU75 PO; +CYCL1DRO BOTH EYES; -FURO20TA3 PO; -IBUP-1542 PO; +LAS20 PO; -LORA-441 PO; -LYRI200 PO; -MECL25TA2 PO; +POTA8CAP PO; +PREG300C PO; -RESTOP4 BOTH EYES; +ROSU20TA PO
[2017-01-18 13:09] VITALS: Ht 157.5 cm; Wt 136.0 kg
== END 2017-01-18 16:28 | disposition left against medical advice (07) ==
LOC: FTE 13:02
DX: Z53.21 Procedure and treatment not carried out due to patient leaving prior to being seen by health care provider (principal)

== ENCOUNTER 2017-01-20 15:02 | Emergency (ER) | payer MEDICARE, OTHER ==
[~2017-01-20] VITALS: Ht 165.1 cm; Wt 120.0 kg
[2017-01-20 15:10] VITALS: Ht 165.1 cm; Wt 120.0 kg
[2017-01-20] MEDS ORDERED: HYDROmorphONE 1 MG/ML SYG IM STA (17:31)
[2017-01-20] MEDS ORDERED: ONDANSETRON (ODT) 4 MG TAB ODT STA (17:31)
--- NOTE | 2017-01-20 18:18 | RADRPT ---
PROCEDURE: CT LUMBAR SPINE WITHOUT CONTRAST: CLINICAL INDICATION: 66 years of age female. Trauma. Pain. . COMPARISON: None available. TECHNIQUE: CT of the lumbar spine was performed without intravenous contrast. Coronal and sagittal r eformatted images were obtained from the axial source images. Images were reviewed on a high-resolut [employer] PACS workstation. Dose information: Based on a 32 cm phantom, the estimated radiation dose (CTDIvol mGy) for each seri es in this exam is 47. The estimated cumulative dose (DLP mGy-cm) is 1504. One or more of the following dose reduction techniques were used: - Automated exposure control. - Adjustment of the mA and/or kV according to patient size. - Use of iterative reconstruction technique. FINDINGS: There are small rudimentary ribs at L1. Using this numbering system, there are 5 lumbar vertebra and spine is imaged from T12 to the sacrum. Alignment: Normal. Vertebrae: Vertebral bodies and posterior elements are intact without acute fracture. Vertebral body heights are maintained. Bone mineral density appears grossly normal. No suspicious lynne ne lesions. There are bulky anterior bridging osteophytes in the lower thoracic spine in keeping with DISH. Ther e is degenerative disc disease in the lumbar spine greatest at L5-S1 where there is disc space narro wing and vacuum phenomenon. There is bilateral facet joint arthritis with sclerosis and hypertrophy greatest at L4-5 and L5-S1. There is bilateral sacroiliac joint arthritis. Extravertebral soft tissues: Normal. Visualized abdomen and pelvis: Atherosclerosis aorta. No aneurysm. Additional comment: None. IMPRESSION: Negative for evidence of acute fracture or traumatic subluxation of the lumbar spine. Multilevel degenerative disc disease and facet joint arthritis as described. RPTAT: HCTS Physician Lisa Date Time Electronically viewed and signed by Physician Lisa on 01/20/2017 18:18 /
[2017-01-20] MEDS ORDERED: METH750T93 PO (19:22)
[2017-01-20] MEDS ORDERED: HYDR-902 PO (19:22)
--- NOTE | 2017-01-20 19:29 | ERD ---
ER Documentation Chief Complaint Date/Time DATE: 01/20/17 TIME: 19:25 Chief Complaint ian fall , on thursday has back pain HPI This is a 66-year-old female who was getting out of the bathtub when the wet floor was there and she slipped. She landed right on her left butt cheek and buttocks she is complaining of pain to her low back and left butt cheek. The patient says she slipped 4 days ago. The pain is sharp and worse with movement better with rest located midline no sciatica pain in the legs no anesthesia in the legs no loss of bowel or bladder. No weakness in the legs. Patient takes Coumadin and has a hematoma to the left buttock cheek. The patient is obese ROS All systems reviewed and are negative except as per history of present illness. Medications Home Meds Active Scripts Methocarbamol* (Robaxin*) 750 Mg Tablet, 750 MG PO TID, #30 TAB Prov:KRISTA SHENSTALECS A. DO 01/20/17 Hydrocodone/Acetaminophen ([place] 10-325 Tablet) 1 Each Tablet, 1 TAB PO Q6H Y for PAIN, #20 TAB Prov:KRISTA SHENSTALECS Neto DO 01/20/17 Potassium Chloride* (Potassium Chloride*) 8 Meq Capsule.er, 8 MEQ PO DAILY for 30 Days, CAP Prov:CORAZON FRANKS. 11/25/16 Furosemide (Lasix) 20 Mg Tab, 40 MG PO DAILY for 30 Days, TAB Prov:CORAZON FRANKS. 11/25/16 Warfarin Sodium (Coumadin) 7.5 Mg Tablet, 7.5 MG PO DAILY@17 for 14 Days, TAB Prov:CORAZON FRANKS. 11/25/16 Metoprolol Succinate* (Toprol XL*) 100 Mg Tab.sr.24h, 100 MG PO DAILY, #30 TAB Prov:CORAZON FRANKS 11/25/16 Gabapentin* (Gabapentin*) 300 Mg Capsule, 450 MG PO TID, #90 CAP Prov:CORAZON FRANKS. 11/25/16 Reported Medications Cyclosporine (RESTASIS) 1 Each Droperette, 1 DROP BOTH EYES Q12, #1 BOX 11/24/16 Pregabalin* (Lyrica*) 300 Mg Capsule, 300 MG PO BID, CAP 11/24/16 Rosuvastatin Calcium* (Crestor*) 20 Mg Tablet, 20 MG PO QHS, #30 TAB 11/24/16 Cilostazol* (Cilostazol*) 50 Mg Tablet, 50 MG PO BID, TAB 11/24/16 Clonidine Hcl* (Clonidine Hcl*) 0.1 Mg Tab, 0.1 MG PO BID Y for ELEVATED BLOOD PRESSURE, TAB 10/03/15 Benazepril Hcl* (Benazepril Hcl*) 10 Mg Tablet, 10 MG PO BID, #60 TAB 10/03/15 Colchicine* (Colcrys*) 0.6 Mg Tablet, 0.6 MG PO DAILY, TAB 10/03/15 Duloxetine Hcl* (Duloxetine Hcl*) 60 Mg Capsule.dr, 60 MG PO DAILY, #30 CAP 10/03/15 Albuterol Sulfate* (Proair HFA*) 8.5 Gm Hfa.aer.ad, 2 PUFF INH Q4H Y for WHEEZING AND SOB, #1 INHALER 10/03/15 Hydrocodone Bit-Acetaminophen* (Hydrocodone-APAP*) 10-325 Tablet, 1 TAB PO BID Y for PAIN, TAB 10/03/15 Allergies Allergies: Coded Allergies: No Known Drug Allergies (Verified Allergy, Mild, 11/24/16) PMhx/Soc History of Surgery: Yes Anesthesia Reaction: No Hx Neurological Disorder: No Hx Respiratory Disorders: No Hx Cardiac Disorders: Yes (HTN) Hx Psychiatric Problems: No Hx Alcohol Use: No Hx Substance Use: No Hx Tobacco Use: No Smoking Status: Never smoker FmHx Family History: No coronary disease Physical Exam Vitals Vital Signs Date Time Temp Pulse Resp B/P Pulse Ox O2 Delivery O2 Flow Rate FiO2 01/20/17 15:10 98.1 79 18 148/75 99 Physical Exam Const: Well-developed, well-nourished Head: Atraumatic, normocephalic Eyes: Normal Conjunctiva, PERRLA, EOMI, normal sclera, no nystagmus ENT: Normal External Ears, Nose and Mouth, moist mucus membranes. Neck: Full range of motion. No meningismus, no lymphadenopathy. Resp: Clear to auscultation bilaterally, no wheezing, rhonchi, rales Cardio: Regular rate and rhythm, no murmurs, S1 S2 present Abd: Soft, non tender x 4, non distended. Normal bowel sounds, no guarding or rebound, no pulsitile abdominal masses or bruits Skin: No petechiae or rashes, large ecchymosis to left buttocks. No signs of infection or cellulitis, no maculopapular rash Back: Midline lumbosacral tenderness Ext: No cyanosis, or edema, FROM x 4, normal inspection, neurovascularly intact x 4 Neur: Awake and alert, STR 5/5 x 4, sensation intact x 4, no focal findings, cerebellum intact Psych: Normal Mood and Affect Results 24 hrs Current Medications Medications (Trade) Dose Ordered Sig/Timbo Route PRN Reason Start Time Stop Time Status Last Admin Dose Admin Hydromorphone HCl (Dilaudid) 1 mg ONCE STAT IM 01/20/17 17:31 01/20/17 17:33 DC 01/20/17 17:41 Ondansetron HCl (Zofran Odt) 4 mg ONCE STAT ODT 01/20/17 17:31 01/20/17 17:33 DC 01/20/17 17:40 Procedures/MDM PROCEDURE: CT LUMBAR SPINE WITHOUT CONTRAST: CLINICAL INDICATION: 66 years of age female. Trauma. Pain. . COMPARISON: None available. TECHNIQUE: CT of the lumbar spine was performed without intravenous contrast. Coronal and sagittal reformatted images were obtained from the axial source images. Images were reviewed on a high-resolution PACS workstation. Dose information: Based on a 32 cm phantom, the estimated radiation dose ( CTDIvol mGy) for each series in this exam is 47. The estimated cumulative dose ( DLP mGy-cm) is 1504. One or more of the following dose reduction techniques were used: - Automated exposure control. - Adjustment of the mA and/or kV according to patient size. - Use of iterative reconstruction technique. FINDINGS: There are small rudimentary ribs at L1. Using this numbering system, there are 5 lumbar vertebra and spine is imaged from T12 to the sacrum. Alignment: Normal. Vertebrae: Vertebral bodies and posterior elements are intact without acute fracture. Vertebral body heights are maintained. Bone mineral density appears grossly normal. No suspicious bone lesions. There are bulky anterior bridging osteophytes in the lower thoracic spine in keeping with DISH. There is degenerative disc disease in the lumbar spine greatest at L5-S1 where there is disc space narrowing and vacuum phenomenon. There is bilateral facet joint arthritis with sclerosis and hypertrophy greatest at L4-5 and L5-S1. There is bilateral sacroiliac joint arthritis. Extravertebral soft tissues: Normal. Visualized abdomen and pelvis: Atherosclerosis aorta. No aneurysm. Additional comment: None. IMPRESSION: Negative for evidence of acute fracture or traumatic subluxation of the lumbar spine. Multilevel degenerative disc disease and facet joint arthritis as described. RPTAT: HCTS Physician Lisa Date Time Electronically viewed and signed by Errol Mane Physician on 01/20/2017 18: 18 CS/ CC: DINORA SHEN DO Departure Diagnosis: Primary Impression: Back pain Back pain location: low back pain Chronicity: acute Back pain laterality: midline Sciatica presence: without sciatica Qualified Code: M54.5 - Acute midline low back pain without sciatica Additional Impression: Hematoma Condition: Stable Patient Instructions: Back Pain (Acute Or Chronic), Hematoma DINORA SHEN DO Jan 20, 2017 19:29
[2017-01-20 19:40] VITALS: BP 125/65; PULSE 106; RESP 16
== END 2017-01-20 19:43 | disposition home or self-care (01) ==
LOC: FTE 15:02
DX: S30.0XXA Contusion of lower back and pelvis, initial encounter (principal); I10 Essential (primary) hypertension; W01.0XXA Fall on same level from slipping, tripping and stumbling without subsequent striking against object, initial encounter; Y92.9 Unspecified place or not applicable; Z79.01 Long term (current) use of anticoagulants
CPT/HCPCS: 72131; 96372; 99285; J1170

== ENCOUNTER 2017-09-26 17:01 | Emergency (ER) | END 2017-09-26 20:23 | disposition home or self-care (01) ==

== ENCOUNTER 2017-09-28 15:23 | Emergency (ER) | END 2017-09-28 22:45 | disposition home or self-care (01) ==

== ENCOUNTER 2017-12-31 17:14 | Emergency (ER) | END 2017-12-31 20:51 | disposition home or self-care (01) ==

== ENCOUNTER 2018-10-09 16:00 | Emergency (ER) | payer MEDICARE, OTHER ==
[~2018-10-09] VITALS: Ht 152.4 cm; Wt 110.0 kg
[~2018-10-09 16:00] MED LIST changes: -ALBU8.5H3 INH; +BENA10TA4 PO; -BENA10TA48 PO; +CILO100T PO; -CILO50TA PO; -COLC0.6T6 PO; -COU75 PO; +CRES20 PO; -CYCL1DRO BOTH EYES; +DIPH28.33 TP; +FAMO40TA5 PO; +FURO40TA4 PO; -HYDR-2059 PO; +HYDR-3980 PO; +IBUP-1542 PO; -LAS20 PO; +LYRI200 PO; +METO-336 PO; -METO100T13 PO; +POTA10TA37 PO; -POTA8CAP PO; -ROSU20TA PO; +TRAM50TA PO; +WARF10TA PO
[2018-10-09 16:03] VITALS: Ht 152.4 cm; Wt 110.0 kg
--- NOTE | 2018-10-09 16:27 | ERD ---
ER Documentation Chief Complaint Chief Complaint ABD PAIN SINCE THIS MORNING HPI 68-year-old woman with a history of cholelithiasis and obesity presents with right upper quadrant abdominal pain similar to previous episodes and some nausea but denies vomiting. Patient has had cholelithiasis in the past but has not yet followed up with a surgeon. Patient denies blood per rectum or melena, no weight loss, no fevers or chills, no chest pain or shortness of breath. ROS All systems reviewed and are negative except as per history of present illness. Medications Home Meds Active Scripts Oxycodone HCl/Acetaminophen (Percocet 5-325 mg Tablet) 1 Each Tablet, 1 EACH PO TID PRN for PAIN LEVEL 6-10, #9 TAB Prov:LUÍS GOLEDN MD 10/09/18 Ondansetron Hcl* (Zofran*) 4 Mg Tablet, 4 MG PO Q8H PRN for NAUSEA AND/OR VOMITING, #30 TAB Prov:LUÍS GOLDEN MD 10/09/18 Cephalexin* (Keflex*) 500 Mg Capsule, 500 MG PO QID for 5 Days, CAP Prov:LUÍS GOLDEN MD 10/09/18 Naproxen* (Naprosyn*) 500 Mg Tablet, 500 MG PO BID PRN for PAIN AND/OR INFLAMMATION, #30 TAB Prov:LUÍS GOLDEN MD 10/09/18 Diphenhydramine Hcl/Zinc Acet (Benadryl Itch Stopping Crm) 28.3 Gm Cream.gm., 1 APPLIC TP TID, #1 TUB Prov:JAYCE BLAIR PA-C 12/31/17 Tramadol Hcl* (Ultram*) 50 Mg Tablet, 50 MG PO Q6H PRN for PAIN, #10 TAB Prov:BERT LAMB MD 09/28/17 Reported Medications Cilostazol* (Cilostazol*) 100 Mg Tablet, 100 MG PO BID, TAB 09/28/17 Duloxetine Hcl* (Duloxetine Hcl*) 60 Mg Capsule.dr, 60 MG PO DAILY, #30 CAP 09/28/17 Pregabalin* (Lyrica*) 300 Mg Capsule, 300 MG PO NEEDED, CAP 09/28/17 Pregabalin* (Lyrica*) 200 Mg Capsule, 200 MG PO NEEDED, CAP 09/28/17 Rosuvastatin Calcium* (Crestor*) 20 Mg Tablet, 20 MG PO QHS, #30 TAB 09/28/17 Hydrocodone/Acetaminophen ([place] 10-325 Tablet) 1 Each Tablet, 1 EACH PO NEEDED, TAB 09/28/17 Gabapentin* (Gabapentin*) 300 Mg Capsule, 300 MG PO DAILY, #60 CAP 09/28/17 Metoprolol Succinate* (Toprol XL*) 100 Mg Tab.sr.24h, 100 MG PO DAILY, #30 TAB 09/28/17 Benazepril Hcl* (Benazepril Hcl*) 10 Mg Tablet, 10 MG PO DAILY, #30 TAB 09/28/17 Famotidine* (Famotidine*) 40 Mg Tablet, 40 MG PO HS, #30 TAB 09/28/17 Ibuprofen* (Ibuprofen*) 600 Mg Tablet, 600 MG PO Q6H, TAB 09/28/17 Furosemide* (Furosemide*) 40 Mg Tablet, 40 MG PO DAILY, TAB 09/28/17 Warfarin Sodium* (Coumadin*) 10 Mg Tablet, 10 MG PO DAILY, TAB 09/28/17 Clonidine Hcl* (Clonidine Hcl*) 0.1 Mg Tab, 0.1 MG PO DAILY PRN for NEEDED, TAB 09/28/17 Potassium Chloride* (K-Dur*) 10 Meq Tab.prt.sr, 10 MEQ PO DAILY, TAB 09/28/17 Allergies Allergies: Coded Allergies: No Known Drug Allergies (Verified Allergy, Mild, 10/09/18) PMhx/Soc history of hypertension, cholelithiasis, CHF, hyperlipidemia, history of DVT most current Doppler ultrasound was negative for deep vein thrombosis of the lower extremities, bilateral knee replacements, morbid obesity, peripheral neuropathy History of Surgery: No Anesthesia Reaction: No Hx Neurological Disorder: No Hx Respiratory Disorders: No Hx Cardiac Disorders: Yes (HTN, CHF) Hx Psychiatric Problems: No Hx Miscellaneous Medical Probl: Yes (GALL STONES ) Hx Alcohol Use: No Hx Substance Use: No Hx Tobacco Use: No Physical Exam Vitals Vital Signs Date Temp Pulse Resp B/P (MAP) Pulse Ox O2 O2 Flow FiO2 Time Delivery Rate 10/09/18 98.2 75 18 121/57 98 Room Air 17:36 (78) 10/09/18 98.1 83 20 151/79 100 Room Air 16:30 (103) 10/09/18 98.1 82 18 168/113 99 16:03 (131) Physical Exam Const: No acute distress, afebrile Head: Atraumatic Eyes: Normal Conjunctiva ENT: Normal External Ears, Nose and Mouth. Neck: Full range of motion. No meningismus. Resp: Clear to auscultation bilaterally Cardio: Regular rate and rhythm, no murmurs Abd: Soft, non tender, non distended. Skin: No petechiae or rashes Back: No midline or flank tenderness Ext: No cyanosis, or edema Neur: Awake and alert x3, no focal deficits or facial asymmetry Psych: Normal Mood and Affect Result Diagram: 10/09/18 1622 10/09/18 1622 Results 24 hrs Laboratory Tests Test 10/09/18 16:22 10/09/18 16:32 White Blood Count 11.9 10^3/ul Red Blood Count 4.56 10^6/ul Hemoglobin 13.1 g/dl Hematocrit 42.3 % Mean Corpuscular Volume 92.8 fl Mean Corpuscular Hemoglobin 28.7 pg Mean Corpuscular Hemoglobin Concent 31.0 g/dl Red Cell Distribution Width 13.6 % Platelet Count 217 10^3/UL Mean Platelet Volume 13.6 fl Immature Granulocytes % 0.300 % Neutrophils % 67.1 % Lymphocytes % 22.5 % Monocytes % 7.3 % Eosinophils % 2.4 % Basophils % 0.4 % Nucleated Red Blood Cells % 0.0 /100WBC Immature Granulocytes # 0.040 10^3/ul Neutrophils # 8.0 10^3/ul Lymphocytes # 2.7 10^3/ul Monocytes # 0.9 10^3/ul Eosinophils # 0.3 10^3/ul Basophils # 0.1 10^3/ul Nucleated Red Blood Cells # 0.0 10^3/ul Sodium Level 143 mmol/L Potassium Level 4.0 mmol/L Chloride Level 103 mmol/L Carbon Dioxide Level 32 mmol/L Anion Gap 8 Blood Urea Nitrogen 17 mg/dl Creatinine 0.78 mg/dl Est Glomerular Filtrat Rate mL/min > 60 mL/min Glucose Level 92 mg/dl Calcium Level 9.0 mg/dl Total Bilirubin 0.4 mg/dl Direct Bilirubin 0.00 mg/dl Indirect Bilirubin 0.4 mg/dl Aspartate Amino Transf (AST/SGOT) 22 IU/L Alanine Aminotransferase (ALT/SGPT) 16 IU/L Alkaline Phosphatase 87 IU/L Total Protein 7.7 g/dl Albumin 4.3 g/dl Globulin 3.40 g/dl Albumin/Globulin Ratio 1.26 Lipase 52 U/L Bedside Urine pH (LAB) 5.5 Bedside Urine Protein (LAB) Negative Bedside Urine Glucose (UA) Negative Bedside Urine Ketones (LAB) Negative Bedside Urine Blood 1+ Bedside Urine Nitrite (LAB) Negative Bedside Urine Leukocyte Esterase (L 1+ Current Medications Medications Dose Sig/Timbo Start Time Status Last (Trade) Ordered Route PRN Stop Time Admin Dose Reason Admin Sodium 500 ml @ Q1H STAT 10/09/18 DC 10/09/18 Chloride 500 mls/hr IV 16:32 16:42 10/09/18 17:31 Ondansetron 4 mg ONCE STAT 10/09/18 DC 10/09/18 HCl (Zofran IV 16:32 16:42 Inj) 10/09/18 16:33 Ketorolac 15 mg ONCE STAT 10/09/18 DC 10/09/18 Tromethamine IV 16:32 16:43 (Toradol) 10/09/18 16:33 Cephalexin 500 mg ONCE ONCE 10/09/18 DC 10/09/18 (Keflex) PO 17:30 17:33 10/09/18 17:31 Procedures/MDM IV line was established 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 Patient was afebrile I administered 500 cc normal saline IV, Toradol 15 mg IV x1, Zofran 4 mg IV with resolution of pain Urine analysis was concerning for infection I treated her here with cephalexin 500 mg p.o. x1 CBC and electrolytes are normal, liver function tests were normal Patient has no signs or symptoms or laboratory evidence of hepatobiliary obstruction and her pain is resolved, she looks well and will be discharged with analgesics and antibiotics for UTI, I also gave her referrals to nearby surgeons. Differential diagnoses considered, included but not limited to acute coronary syndrome, pulmonary embolism, aortic dissection, abdominal aortic aneurysm, sepsis, stroke, meningitis, encephalitis, pneumonia, appendicitis, cholecystitis, bowel obstruction, pyelonephritis, nephrolithiasis, cystitis, as well as metabolic, hematologic, and electrolyte abnormalities. As well as abscess, cellulitis, fractures, and dislocations. Patient feels much better at this time, and vital signs are normal, symptoms have improved. I did give strict instructions to return to the ED if symptoms continue or worsen, patient will otherwise follow-up with primary care physician. Patient understood instructions and agreed to plan. Disclaimer: Inadvertent spelling and grammatical errors are likely due to EHR/dictation software use and do not reflect on the overall quality of patient care. Also, please note that the electronic time recorded on this note does not necessarily reflect the actual time of the patient encounter. Departure Diagnosis: Primary Impression: Cholelithiasis Cholelithiasis location: gallbladder Cholecystitis presence: without c holecystitis Biliary obstruction: without biliary obstruction Qualified Codes: K80.20 - Calculus of gallbladder without cholecystitis without obstruction Additional Impression: Acute UTI Condition: Good LUÍS GOLDEN MD October 09, 2018 16:27
[2018-10-09] MEDS ORDERED: ONDANSETRON 4 MG INJ IV STA (16:32)
[2018-10-09] MEDS ORDERED: SOD CHLORIDE 0.9% 500 ML IV STA (16:32)
[2018-10-09] MEDS ORDERED: KETOROLAC 15 MG INJ IV STA (16:32)
[2018-10-09] MEDS ORDERED: CEPHALEXIN 500 MG CAP PO ONE (17:30)
[2018-10-09] MEDS ORDERED: NAPR-985 PO (17:33)
[2018-10-09] MEDS ORDERED: OXYC-279 PO (17:33)
[2018-10-09] MEDS ORDERED: CEPH-443 PO (17:33)
[2018-10-09] MEDS ORDERED: ONDA4TAB8 PO (17:33)
[2018-10-09 17:36] VITALS: BP 121/57; PULSE 75; RESP 18
== END 2018-10-09 18:00 | disposition home or self-care (01) ==
LOC: E/R 16:00
DX: K80.20 Calculus of gallbladder without cholecystitis without obstruction (principal); N39.0 Urinary tract infection, site not specified; I11.0 Hypertensive heart disease with heart failure; I50.9 Heart failure, unspecified; E66.01 Morbid (severe) obesity due to excess calories; Z68.42 Body mass index [BMI] 45.0-49.9, adult; Z79.01 Long term (current) use of anticoagulants; Z96.653 Presence of artificial knee joint, bilateral
CPT/HCPCS: 80053; 81003; 83690; 85025; J1885; J2405; J7040; 36415; 96361; 96374; 96375

== ENCOUNTER 2018-10-27 16:04 | Observation (INO) | payer MEDICARE, OTHER ==
[~2018-10-27] VITALS: Ht 152.4 cm; Wt 137.2 kg
[~2018-10-27 16:04] MED LIST changes: +CEPH-443 PO; +NAPR-985 PO; +ONDA4TAB8 PO; +OXYC-279 PO
--- NOTE | 2018-10-27 17:08 | ERD ---
ER Documentation Chief Complaint Chief Complaint L CP HPI The patient is a 68-year-old female, presenting to the ER because of left-sided chest pain for about a month, no aggravating/relieving factors, the pain is getting worse, denies similar symptoms previously, denies chest pain with vomiting/radiation/exertion/diaphoresis, dyspnea, abdominal pain, vomiting, dysuria, diarrhea. She does not smoke nor drink Medical history: Dyslipidemia, hypertension, CAD, history of CHF, cholelithiasis, history of DVT Past surgical history: Bilateral knee arthroplasty ROS All systems reviewed and are negative except as per history of present illness. Medications Home Meds Reported Medications Atorvastatin* (Atorvastatin*) 40 Mg Tablet, 40 MG PO QHS, #30 TAB 10/27/18 Potassium Chloride* (K-Dur*) 10 Meq Tab.prt.sr, 10 MEQ PO DAILY, TAB 10/27/18 Metoprolol Succinate* (Toprol XL*) 100 Mg Tab.sr.24h, 100 MG PO BID, #30 TAB 10/27/18 Furosemide* (Lasix*) 20 Mg Tablet, 20 MG PO DAILY, TAB 10/27/18 Warfarin Sodium* (Coumadin*) 10 Mg Tablet, 10 MG PO DAILY, TAB 10/27/18 Hydralazine Hcl* (Hydralazine Hcl*) 25 Mg Tab, 25 MG PO TID PRN for ELEVATED BLOOD PRESSURE, #60 TAB 10/27/18 Benazepril-Hydrochlorothiazide (Benazepril-Hydrochlorothiazide) 20-12.5 Mg Tab let, 1 TAB PO DAILY, #30 TAB 10/27/18 Clonidine Hcl* (Clonidine Hcl*) 0.1 Mg Tab, 0.1 MG PO BID PRN for ELEVATED BLOOD PRESSURE, TAB 10/27/18 Cyclosporine (RESTASIS) 1 Each Droperette, 1 DROP BOTH EYES Q12, #1 BOX 10/27/18 Gabapentin* (Gabapentin*) 300 Mg Capsule, 300 MG PO BID, #60 CAP 10/27/18 Ursodiol* (Ursodiol*) 250 Mg Tablet, 250 MG PO TID, TAB 10/27/18 Duloxetine Hcl* (Duloxetine Hcl*) 60 Mg Capsule.dr, 60 MG PO DAILY, #30 CAP 10/27/18 Levothyroxine Sodium* (Levoxyl*) 137 Mcg Tablet, 137 MCG PO BEFORE BREAKFAST, #30 TAB 10/27/18 Discontinued Reported Medications Cilostazol* (Cilostazol*) 100 Mg Tablet, 100 MG PO BID, TAB 09/28/17 Duloxetine Hcl* (Duloxetine Hcl*) 60 Mg Capsule.dr, 60 MG PO DAILY, #30 CAP 09/28/17 Pregabalin* (Lyrica*) 300 Mg Capsule, 300 MG PO NEEDED, CAP 09/28/17 Pregabalin* (Lyrica*) 200 Mg Capsule, 200 MG PO NEEDED, CAP 09/28/17 Rosuvastatin Calcium* (Crestor*) 20 Mg Tablet, 20 MG PO QHS, #30 TAB 09/28/17 Hydrocodone/Acetaminophen ([place] 10-325 Tablet) 1 Each Tablet, 1 EACH PO NEEDED, TAB 09/28/17 Gabapentin* (Gabapentin*) 300 Mg Capsule, 300 MG PO DAILY, #60 CAP 09/28/17 Metoprolol Succinate* (Toprol XL*) 100 Mg Tab.sr.24h, 100 MG PO DAILY, #30 TAB 09/28/17 Benazepril Hcl* (Benazepril Hcl*) 10 Mg Tablet, 10 MG PO DAILY, #30 TAB 09/28/17 Famotidine* (Famotidine*) 40 Mg Tablet, 40 MG PO HS, #30 TAB 09/28/17 Ibuprofen* (Ibuprofen*) 600 Mg Tablet, 600 MG PO Q6H, TAB 09/28/17 Furosemide* (Furosemide*) 40 Mg Tablet, 40 MG PO DAILY, TAB 09/28/17 Warfarin Sodium* (Coumadin*) 10 Mg Tablet, 10 MG PO DAILY, TAB 09/28/17 Clonidine Hcl* (Clonidine Hcl*) 0.1 Mg Tab, 0.1 MG PO DAILY PRN for NEEDED, TAB 09/28/17 Potassium Chloride* (K-Dur*) 10 Meq Tab.prt.sr, 10 MEQ PO DAILY, TAB 09/28/17 Discontinued Scripts Oxycodone HCl/Acetaminophen (Percocet 5-325 mg Tablet) 1 Each Tablet, 1 EACH PO TID PRN for PAIN LEVEL 6-10, #9 TAB Prov:LUÍS GOLDEN MD 10/09/18 Ondansetron Hcl* (Zofran*) 4 Mg Tablet, 4 MG PO Q8H PRN for NAUSEA AND/OR VOMITING, #30 TAB Prov:ZOHRABIAN,LUÍS MD 10/09/18 Cephalexin* (Keflex*) 500 Mg Capsule, 500 MG PO QID for 5 Days, CAP Prov:LUÍS GOLDEN MD 10/09/18 Naproxen* (Naprosyn*) 500 Mg Tablet, 500 MG PO BID PRN for PAIN AND/OR INFLAMMATION, #30 TAB Prov:LUÍS GOLDEN MD 10/09/18 Diphenhydramine Hcl/Zinc Acet (Benadryl Itch Stopping Crm) 28.3 Gm Cream.gm., 1 APPLIC TP TID, #1 TUB Prov:JAYCE BLAIR PA-C 12/31/17 Tramadol Hcl* (Ultram*) 50 Mg Tablet, 50 MG PO Q6H PRN for PAIN, #10 TAB Prov:BERT LAMB MD 09/28/17 Allergies Allergies: Coded Allergies: No Known Drug Allergies (Verified Allergy, Mild, 10/27/18) PMhx/Soc History of Surgery: No Anesthesia Reaction: No Hx Neurological Disorder: No Hx Respiratory Disorders: No Hx Cardiac Disorders: Yes (HTN, CHF) Hx Psychiatric Problems: No Hx Miscellaneous Medical Probl: Yes (cholelithiasis) Hx Alcohol Use: No Hx Substance Use: No Hx Tobacco Use: No Physical Exam Vitals Vital Signs Date Temp Pulse Resp B/P (MAP) Pulse Ox O2 O2 Flow FiO2 Time Delivery Rate 10/27/18 76 18 138/76 100 Room Air 18:20 (96) 10/27/18 82 16 162/73 99 Room Air 17:15 (102) 10/27/18 99.6 93 19 182/92 98 16:10 (122) Physical Exam Const: No acute distress. Head: Atraumatic. Eyes: Normal Conjunctiva. ENT: Normal External Ears, Nose and Mouth. Neck: Full range of motion. No meningismus. Resp: Clear to auscultation bilaterally. Cardio: Regular rate and rhythm. Abd: Soft, non distended, normal bowel sounds, non tender. Skin: No petechiae or rashes. Back: No midline or flank tenderness. Ext: No cyanosis, or edema. Neur: Awake and alert. No focal deficit Psych: Normal Mood and Affect. Result Diagram: 10/27/18 1727 10/27/18 1727 Results 24 hrs Laboratory Tests Test 10/27/18 17:27 10/27/18 17:29 White Blood Count 10.5 10^3/ul Red Blood Count 4.74 10^6/ul Hemoglobin 13.5 g/dl Hematocrit 42.6 % Mean Corpuscular Volume 89.9 fl Mean Corpuscular Hemoglobin 28.5 pg Mean Corpuscular Hemoglobin Concent 31.7 g/dl Red Cell Distribution Width 13.4 % Platelet Count 217 10^3/UL Mean Platelet Volume 12.8 fl Immature Granulocytes % 0.300 % Neutrophils % 64.2 % Lymphocytes % 26.4 % Monocytes % 6.3 % Eosinophils % 2.2 % Basophils % 0.6 % Nucleated Red Blood Cells % 0.0 /100WBC Immature Granulocytes # 0.030 10^3/ul Neutrophils # 6.8 10^3/ul Lymphocytes # 2.8 10^3/ul Monocytes # 0.7 10^3/ul Eosinophils # 0.2 10^3/ul Basophils # 0.1 10^3/ul Nucleated Red Blood Cells # 0.0 10^3/ul Sodium Level 141 mmol/L Potassium Level 4.1 mmol/L Chloride Level 106 mmol/L Carbon Dioxide Level 28 mmol/L Anion Gap 7 Blood Urea Nitrogen 12 mg/dl Creatinine 0.68 mg/dl Est Glomerular Filtrat Rate mL/min > 60 mL/min Glucose Level 93 mg/dl Calcium Level 9.0 mg/dl Troponin I < 0.012 ng/ml Prothrombin Time 18.4 Sec Prothrombin Time Ratio 1.4 INR International Normalized Ratio 1.52 Activated Partial Thromboplast Time 44.6 Sec Current Medications Medications Dose Sig/Timbo Start Time Status Last (Trade) Ordered Route PRN Stop Time Admin Dose Reason Admin 1 inch ONCE ONCE 10/27/18 DC 10/27/18 Nitroglycerin TD 18:30 18:29 10/27/18 18:31 (Nitroglyceri n 2% Oint) Aspirin 162 mg ONCE ONCE 10/27/18 DC 10/27/18 (Aspirin) PO 18:30 18:29 10/27/18 18:31 Procedures/[address] [address] Radiology Main Line: [phone] DIAGNOSTIC IMAGING REPORT Patient: MADISYN SANCHEZ : 1950 Age: 68 Sex: F MR #: [id number] [facility] #: [id number] DOS: 10/27/18 1705 Ordering MD: BERT LAMB MD Location: E/R Room/Bed: PROCEDURE: XR Chest, 1 View CLINICAL INDICATION: Chest pain. TECHNIQUE: Frontal view of the chest. COMPARISON: 10/16/2015 (10/16/2015) FINDINGS: LUNGS: Unremarkable. No consolidation. PLEURAL SPACE: Unremarkable. No pneumothorax. HEART: Unremarkable. No cardiomegaly. MEDIASTINUM: Unremarkable. BONES/JOINTS: Degenerative changes of the thoracic spine are noted. VASCULATURE: The thoracic aorta is tortuous and atherosclerotic. IMPRESSION: 1. No acute abnormality demonstrated. 2. There is no significant interval change from the previous study. RPTAT: [facility] Reva Adam Physician Piping Supervisor Date Time Electronically viewed and signed by Reva Adam Physician Piping Supervisor on 10/27/2018 17:30 RmC/ CC: BERT LAMB MD [phone] EKG: Read by emergency physician Rate/Rhythm: Normal Sinus Rhythm 78 beats/min QRS, ST, T-waves: No ST elevation, no T inversion, LVH, inferior and anterior T abnormality Impression: Abnormal EKG MEDICAL MAKING DECISION: The patient is a 68-year-old female with multiple cardiac risk factor, presenting with acute chest pain that is concerning for acute ACS, was treated with 1 inch of nitroglycerin ointment to the chest wall and aspirin 162 mg p.o. for acute chest pain with good response. the differential diagnoses considered include but are not limited to acute coronary syndrome, acute myocardial infarction, pericarditis, pulmonary embolism, aortic dissection, pneumonia, pleural effusion, pneumothorax, GERD, chest wall pain. Departure Diagnosis: Primary Impression: Chest pain Condition: Stable Comments I discussed the findings with the patient. I discussed the patient with Dr Maya at 6:25p , who was made aware of the lab, the treatment, the patient condition. The patient is admitted to Tel Obs Disclaimer: Inadvertent spelling and grammatical errors are likely due to EHR/dictation software use and do not reflect on the overall quality of patient care. Also, please note that the electronic time recorded on this note does not necessarily reflect the actual time of the patient encounter. BERT LAMB MD Oct 27, 2018 17:08
[2018-10-27] MEDS ORDERED: LEVO137T26 PO (17:46)
[2018-10-27] MEDS ORDERED: DULO60CA59 PO (17:47)
[2018-10-27] MEDS ORDERED: URSO250T10 PO (17:47)
[2018-10-27] MEDS ORDERED: GABA300C16 PO (17:48)
[2018-10-27] MEDS ORDERED: CYCL1DRO BOTH EYES (17:49)
[2018-10-27] MEDS ORDERED: BENA1TAB13 PO (17:50)
[2018-10-27] MEDS ORDERED: CLON-379 PO (17:50)
[2018-10-27] MEDS ORDERED: HYDR-3671 PO (17:51)
[2018-10-27] MEDS ORDERED: WARF10TA PO (17:51)
[2018-10-27] MEDS ORDERED: FURO-110 PO (17:51)
[2018-10-27] MEDS ORDERED: METO-336 PO (17:52)
[2018-10-27] MEDS ORDERED: POTA10TA37 PO (17:52)
[2018-10-27] MEDS ORDERED: ATOR40TA68 PO (17:53)
[2018-10-27] MEDS ORDERED: ASPIRIN 81 MG TAB PO ONE (18:30)
[2018-10-27] MEDS ORDERED: NITROGLYCERIN 2% 1 GM OINT PKT TD ONE (18:30)
[2018-10-27] MEDS ORDERED: DOCUSATE SODIUM 100 MG CAP PO PRN (19:30)
[2018-10-27] MEDS ORDERED: MAGNESIUM HYDROXIDE 30ML CUP PO PRN (19:30)
[2018-10-27] MEDS ORDERED: ONDANSETRON 4 MG INJ IV PRN (19:30)
[2018-10-27] MEDS ORDERED: hydrALAzine 20 MG INJ IV PRN (19:30)
[2018-10-27] MEDS ORDERED: NACL 0.9% 3 ML SYG IV SCH (19:30)
[2018-10-27] MEDS ORDERED: ACETAMINOPHEN 325 MG TAB PO PRN (19:30)
--- NOTE | 2018-10-27 19:30 | HP ---
Date/Time of Note Date/Time of Note DATE: 10/27/18 TIME: 19:12 Assessment/Plan VTE Prophylaxis SCD applied (from Nsg): Yes Pharmacological prophylaxis: warfarin tx Lines/Catheters IV Catheter Type (from Nrsg): Peripheral IV Assessment/Plan Assessment/Plan 1. Acute chest pain, rule out ACS - atypical in nature given 1 month duration and present at rest - negative initial troponin and will continue to trend - EKG negative for acute ST changes - Dr. Gutierrez made aware of patients admission. If any abnormalities found, please call or else will follow as outpatient - nitro, aspirin, and statin on board - Toradol for pain. patient does not want narcotics - ECHO ordered 2. Diastolic heart failure - appears compensated but given body habitus difficult to assess - BNP ordered - CXR negative for pulmonary edema or signs of congestion - continue Lasix 3. HTN - elevated upon presentation - patient on PRN medications at home and will need to adjust standing dosages for better BP control - continue on BB 4. h/o DVT - on Coumadin but with subtherapeutic INR - continue dosing daily 5. CAD - continue current medications 6. Hypothyroidism - check TSH - continue levothyroxine 7. General anxiety disorder - continue cymbalta 8. Morbidly obese - lifestyle modification counseling 9. Disposition - Admit to telemetry for ACS rule out. Result Diagram: 10/27/18 1727 10/27/18 1727 Results 24hrs Laboratory Tests Test 10/27/18 17:27 10/27/18 17:29 White Blood Count 10.5 Red Blood Count 4.74 Hemoglobin 13.5 Hematocrit 42.6 Mean Corpuscular Volume 89.9 Mean Corpuscular Hemoglobin 28.5 L Mean Corpuscular Hemoglobin Concent 31.7 L Red Cell Distribution Width 13.4 Platelet Count 217 Mean Platelet Volume 12.8 H Immature Granulocytes % 0.300 Neutrophils % 64.2 Lymphocytes % 26.4 Monocytes % 6.3 Eosinophils % 2.2 Basophils % 0.6 Nucleated Red Blood Cells % 0.0 Immature Granulocytes # 0.030 Neutrophils # 6.8 Lymphocytes # 2.8 Monocytes # 0.7 Eosinophils # 0.2 Basophils # 0.1 Nucleated Red Blood Cells # 0.0 Sodium Level 141 Potassium Level 4.1 Chloride Level 106 Carbon Dioxide Level 28 Anion Gap 7 Blood Urea Nitrogen 12 Creatinine 0.68 Est Glomerular Filtrat Rate mL/min > 60 Glucose Level 93 Calcium Level 9.0 Troponin I < 0.012 Prothrombin Time 18.4 #H Prothrombin Time Ratio 1.4 INR International Normalized Ratio 1.52 Activated Partial Thromboplast Time 44.6 H HPI/ROS Admit Date/Time Admit Date/Time 10/27/18 Hx of Present Illness 68 yo F with PMH CAD, HTN, chronic neuropathy, and CHF presented to the ED secondary to worsening chest pain for the past month. Patient states she has been experiencing left sided chest pain, radiating at times to the right chest wall with associated shortness of breath. Describes as pressure like and moderate in nature. She went to see her Cross Cut Saw Operator, Dr. Gutierrez today but decided to come to the ED before she was able to talk to him. Patient denies any nausea, vomiting, abdominal pain, urinary issues, dizziness, or LOC. Family was at bedside as well and assisting with history. ROS All 12 systems reviewed and pertinent positives per HPI. All others negative. Constitutional: No fatigue, No nausea Eyes: No discharge ENT: No congestion Respiratory: No pain, No shortness of breath, No sputum, No wheezing Cardiovascular: chest pain, edema; No lightheadedness, No palpitations Gastrointestinal: No pain, No constipation, No diarrhea, No nausea, No vomiting Genitourinary: no complaints Musculoskeletal: no complaints Skin: No laceration, No rash Neurologic: No confusion, No focal-weakness, No headache, No syncope Endocrine: no complaints Lymphatic: no complaints Psychological: nl mood/affect Immunologic: no complaints PMH/Family/Social Past Medical History Medical History: congestive heart failure, coronary artery disease, hypertension Coded Allergies: No Known Drug Allergies (Verified Allergy, Mild, 10/27/18) Past Surgical History Past Surgical Hx: other (b/l knee replacement, LHC) Family History Significant Family History: no pertinent family hx Social History Alcohol Use: none Smoking Status: Never smoker Drug Use: none Exam/Review of Systems Vital Signs Vitals Vital Signs Date Temp Pulse Resp B/P (MAP) Pulse Ox O2 O2 Flow FiO2 Time Delivery Rate 10/27/18 76 18 138/76 100 Room Air 18:20 (96) 10/27/18 99.6 16:10 Exam Exam General: Morbidly obese female, currently lying in bed in no acute distress, answering questions appropriately. HEENT: Atraumatic, normocephalic. The pupils are equal, round and reactive. Extraocular motor are intact Neck: Supple with full range of motion. No rigidity or meningismus Chest: Nontender Lungs: Clear to auscultation bilaterally but diminished, no crackles rales or wheezing Heart: Normal S1-S2, Regular rhythm and rate. No murmur, S3, or S4 Abdomen: Soft , nontender, nondistended , bowel sounds are present. No guarding no rebound tenderness , No masses or organomegaly. No costovertebral temporal angle mass Extremities: lower extremity swelling, chronic venous stasis changes Neurologic: Normal mental status, speech normal, cranial nerves II through XII are intact, motor and sensory are intact, Additional Comments Home medications reviewed PROCEDURE: XR Chest, 1 View CLINICAL INDICATION: Chest pain. TECHNIQUE: Frontal view of the chest. COMPARISON: 10/16/2015 (10/16/2015) FINDINGS: LUNGS: Unremarkable. No consolidation. PLEURAL SPACE: Unremarkable. No pneumothorax. HEART: Unremarkable. No cardiomegaly. MEDIASTINUM: Unremarkable. BONES/JOINTS: Degenerative changes of the thoracic spine are noted. VASCULATURE: The thoracic aorta is tortuous and atherosclerotic. IMPRESSION: 1. No acute abnormality demonstrated. 2. There is no significant interval change from the previous study. RPTAT: [facility] Reva Adam Physician Retail Merchandising Specialist Date Time Electronically viewed and signed by Reva Adam Physician Retail Merchandising Specialist on 10/27/2018 17:30 KATHERINE BRADY MD Oct 27, 2018 19:29
[2018-10-27] MEDS: GABAPENTIN 300 MG CAP PO SCH (20:33)
[2018-10-27] MEDS: WARFARIN 10 MG TAB PO SCH (20:33)
[2018-10-27] MEDS: URSODIOL 250 MG TAB PO SCH (20:33)
[2018-10-27] MEDS: CYCLOSPORINE 0.05% OPH DROPERETTE BOTH EYES SCH (20:34)
[2018-10-27] MEDS: METOPROLOL (XL) 100 MG TAB PO SCH (20:35)
[2018-10-27] MEDS: ATORVASTATIN 40 MG TAB PO SCH (20:46)
[2018-10-27 23:21] VITALS: BP 165/85; PULSE 70; RESP 18
[2018-10-27 23:28] VITALS: Ht 152.4 cm; Wt 137.2 kg
[2018-10-27] MEDS ORDERED: HYDR-3980 PO (23:32)
[2018-10-27] MEDS ORDERED: PREG300C PO (23:32)
[2018-10-27] MEDS: NITROGLYCERIN (SL) 0.4 MG TAB SL PRN ×2 (23:38→23:43)
[2018-10-27 23:44] VITALS: BP 117/60; PULSE 67
[2018-10-27 23:51] VITALS: BP 119/63; PULSE 66
[2018-10-28] VITALS (10 sets, daily range): BP systolic 115–135; BP diastolic 61–72; PULSE 57–65; RESP 20
[2018-10-28] MEDS ORDERED: HYDROCODONE/APAP (10/325) TAB PO PRN (01:00)
[2018-10-28] MEDS: KETOROLAC 15 MG INJ IV PRN ×2 (05:52)
[2018-10-28] MEDS: PANTOPRAZOLE (EC) 40 MG TAB PO SCH (05:52)
[2018-10-28] MEDS: LEVOTHYROXINE 137 MCG TAB PO SCH (06:28)
[2018-10-28] MEDS ORDERED: POTASSIUM CHLORIDE (SR) 20 MEQ TAB PO STA (08:40)
[2018-10-28] MEDS: METOPROLOL (XL) 100 MG TAB PO SCH ×2 (08:47→20:34)
[2018-10-28] MEDS: CYCLOSPORINE 0.05% OPH DROPERETTE BOTH EYES SCH ×2 (08:47→20:30)
[2018-10-28] MEDS: GABAPENTIN 300 MG CAP PO SCH ×2 (08:47→20:30)
[2018-10-28] MEDS: POTASSIUM CHLORIDE (SR) 10 MEQ TAB PO SCH (08:48)
[2018-10-28] MEDS: FUROSEMIDE 20 MG TAB PO SCH (08:48)
[2018-10-28] MEDS: PREGABALIN 50 MG CAP PO SCH ×2 (08:48→20:29)
[2018-10-28] MEDS: DULOXETINE 30 MG CAP DR PO SCH (08:48)
[2018-10-28] MEDS: URSODIOL 250 MG TAB PO SCH ×3 (09:00→20:30)
[2018-10-28] MEDS: NAPROXEN 500 MG TAB PO SCH ×2 (10:48→20:29)
--- NOTE | 2018-10-28 12:11 | PN ---
Date/Time of Note Date/Time of Note DATE: 10/28/18 TIME: 12:04 Assessment/Plan VTE Prophylaxis SCD applied (from Nsg): Yes Pharmacological prophylaxis: warfarin tx Lines/Catheters IV Catheter Type (from Nrsg): Saline Lock Assessment/Plan Assessment/Plan 1. Acute chest pain, rule out ACS - appears more musculoskeletal given pain when left chest wall palpated. Relief with Toradol and will start Naproxen BID - atypical in nature given 1 month duration and present at rest - negative serial trops - EKG negative for acute ST changes - Dr. Gutierrez made aware of patients admission. Patient requesting to see Dr Gagandeep Rendon who has been made aware. States plans to follow with Dr. Rendon as outpatient if possible - nitro, aspirin, and statin on board - ECHO ordered 2. Diastolic heart failure - appears compensated - BNP nl - CXR negative for pulmonary edema or signs of congestion - continue Lasix 3. HTN- stable - elevated upon presentation - continue on BB 4. h/o DVT - on Coumadin but with subtherapeutic INR - continue dosing daily 5. CAD - continue current medications 6. Hypothyroidism - TSH nl - continue levothyroxine 7. General anxiety disorder - continue Cymbalta 8. Morbidly obese - lifestyle modification counseling 9. Disposition - Dr. Rendon consulted for further recommendations - Will start on Naproxen to help with L chest wall discomfort Result Diagram: 10/28/18 0530 10/28/18 0530 Results 24hrs Laboratory Tests Test 10/27/18 17:26 10/27/18 17:27 10/27/18 17:29 10/27/18 22:55 B-Type Natriuretic 106 Peptide White Blood Count 10.5 Red Blood Count 4.74 Hemoglobin 13.5 Hematocrit 42.6 Mean Corpuscular 89.9 Volume Mean Corpuscular 28.5 L Hemoglobin Mean Corpuscular 31.7 L Hemoglobin Concent Red Cell 13.4 Distribution Width Platelet Count 217 Mean Platelet Volume 12.8 H Immature 0.300 Granulocytes % Neutrophils % 64.2 Lymphocytes % 26.4 Monocytes % 6.3 Eosinophils % 2.2 Basophils % 0.6 Nucleated Red Blood 0.0 Cells % Immature 0.030 Granulocytes # Neutrophils # 6.8 Lymphocytes # 2.8 Monocytes # 0.7 Eosinophils # 0.2 Basophils # 0.1 Nucleated Red Blood 0.0 Cells # Sodium Level 141 Potassium Level 4.1 Chloride Level 106 Carbon Dioxide Level 28 Anion Gap 7 Blood Urea Nitrogen 12 Creatinine 0.68 Est Glomerular > 60 Filtrat Rate mL/min Glucose Level 93 Calcium Level 9.0 Troponin I < 0.012 < 0.012 Prothrombin Time 18.4 #H Prothrombin Time 1.4 Ratio INR International 1.52 Normalized Ratio Activated 44.6 H Partial Thromboplast Time Creatine Kinase 211 H Creatine Kinase 0.7 Index Creatinine Kinase MB 1.48 (Mass) Test 10/28/18 05:30 White Blood Count 7.4 # Red Blood Count 4.48 Hemoglobin 12.7 Hematocrit 40.1 Mean Corpuscular 89.5 Volume Mean Corpuscular 28.3 L Hemoglobin Mean Corpuscular 31.7 L Hemoglobin Concent Red Cell 13.7 Distribution Width Platelet Count 193 Mean Platelet Volume 13.1 H Immature 0.300 Granulocytes % Neutrophils % 56.1 Lymphocytes % 31.1 Monocytes % 7.8 Eosinophils % 3.9 Basophils % 0.8 Nucleated Red Blood 0.0 Cells % Immature 0.020 Granulocytes # Neutrophils # 4.2 Lymphocytes # 2.3 Monocytes # 0.6 Eosinophils # 0.3 Basophils # 0.1 Nucleated Red Blood 0.0 Cells # Prothrombin Time 19.1 H Prothrombin Time 1.5 Ratio INR International 1.60 Normalized Ratio Sodium Level 141 Potassium Level 3.7 Chloride Level 107 Carbon Dioxide Level 27 Anion Gap 7 Blood Urea Nitrogen 13 Creatinine 0.61 Est Glomerular > 60 Filtrat Rate mL/min Glucose Level 107 Hemoglobin A1c 5.5 Calcium Level 8.6 Magnesium Level 2.2 Creatine Kinase 192 Creatine Kinase 0.7 Index Creatinine Kinase MB 1.25 (Mass) Troponin I < 0.012 Thyroid Stimulating 1.050 Hormone (TSH) Subjective 24 Hr Interval Summary Free Text/Dictation Patient still with left chest tenderness and reproducible. Does admit to lifting and working. Requesting to see Dr. Rendon while inpatient. Exam/Review of Systems Exam Vitals Vital Signs Date Temp Pulse Resp B/P (MAP) Pulse Ox O2 O2 Flow FiO2 Time Delivery Rate 10/28/18 97.8 64 20 115/62 96 10:59 (79) 10/28/18 Room Air 07:29 Intake and Output 10/27/18 10/27/18 10/28/18 1515:00 23:00 07:00 IntakeIntake Total 400 ml BalanceBalance 400 ml Exam General: Morbidly obese female, currently lying in bed in no acute distress Neck: Supple Chest: tender left chest wall. no palpable masses or noted skin abnormalities Lungs: Clear to auscultation bilaterally but diminished, no crackles rales or wheezing Heart: Normal S1-S2, Regular rhythm and rate. No murmur, S3, or S4 Abdomen: Soft , nontender, nondistended , bowel sounds are present. No guarding no rebound tenderness Extremities: lower extremity swelling, chronic venous stasis changes Results Results 24hrs Laboratory Tests Test 10/27/18 17:26 10/27/18 17:27 10/27/18 17:29 10/27/18 22:55 B-Type Natriuretic 106 Peptide White Blood Count 10.5 Red Blood Count 4.74 Hemoglobin 13.5 Hematocrit 42.6 Mean Corpuscular 89.9 Volume Mean Corpuscular 28.5 L Hemoglobin Mean Corpuscular 31.7 L Hemoglobin Concent Red Cell 13.4 Distribution Width Platelet Count 217 Mean Platelet Volume 12.8 H Immature 0.300 Granulocytes % Neutrophils % 64.2 Lymphocytes % 26.4 Monocytes % 6.3 Eosinophils % 2.2 Basophils % 0.6 Nucleated Red Blood 0.0 Cells % Immature 0.030 Granulocytes # Neutrophils # 6.8 Lymphocytes # 2.8 Monocytes # 0.7 Eosinophils # 0.2 Basophils # 0.1 Nucleated Red Blood 0.0 Cells # Sodium Level 141 Potassium Level 4.1 Chloride Level 106 Carbon Dioxide Level 28 Anion Gap 7 Blood Urea Nitrogen 12 Creatinine 0.68 Est Glomerular > 60 Filtrat Rate mL/min Glucose Level 93 Calcium Level 9.0 Troponin I < 0.012 < 0.012 Prothrombin Time 18.4 #H Prothrombin Time 1.4 Ratio INR International 1.52 Normalized Ratio Activated 44.6 H Partial Thromboplast Time Creatine Kinase 211 H Creatine Kinase 0.7 Index Creatinine Kinase MB 1.48 (Mass) Test 10/28/18 05:30 White Blood Count 7.4 # Red Blood Count 4.48 Hemoglobin 12.7 Hematocrit 40.1 Mean Corpuscular 89.5 Volume Mean Corpuscular 28.3 L Hemoglobin Mean Corpuscular 31.7 L Hemoglobin Concent Red Cell 13.7 Distribution Width Platelet Count 193 Mean Platelet Volume 13.1 H Immature 0.300 Granulocytes % Neutrophils % 56.1 Lymphocytes % 31.1 Monocytes % 7.8 Eosinophils % 3.9 Basophils % 0.8 Nucleated Red Blood 0.0 Cells % Immature 0.020 Granulocytes # Neutrophils # 4.2 Lymphocytes # 2.3 Monocytes # 0.6 Eosinophils # 0.3 Basophils # 0.1 Nucleated Red Blood 0.0 Cells # Prothrombin Time 19.1 H Prothrombin Time 1.5 Ratio INR International 1.60 Normalized Ratio Sodium Level 141 Potassium Level 3.7 Chloride Level 107 Carbon Dioxide Level 27 Anion Gap 7 Blood Urea Nitrogen 13 Creatinine 0.61 Est Glomerular > 60 Filtrat Rate mL/min Glucose Level 107 Hemoglobin A1c 5.5 Calcium Level 8.6 Magnesium Level 2.2 Creatine Kinase 192 Creatine Kinase 0.7 Index Creatinine Kinase MB 1.25 (Mass) Troponin I < 0.012 Thyroid Stimulating 1.050 Hormone (TSH) Medications Medication Current Medications Atorvastatin Calcium (Lipitor) 40 mg QHS PO Last administered on 10/27/18 20:46; Admin Dose 40 MG; Start 10/27/18 at 21:00 Cyclosporine (Restasis) 1 drop Q12 BOTH EYES Last administered on 10/28/18 08:47; Admin Dose 1 DROP; Start 10/27/18 at 21:00 Duloxetine HCl (Cymbalta) 60 mg DAILY PO Last administered on 10/28/18 08:48; Admin Dose 60 MG; Start 10/28/18 at 09:00 Furosemide (Lasix) 20 mg DAILY PO Last administered on 10/28/18 08:48; Admin Dose 20 MG; Start 10/28/18 at 09:00 Gabapentin (Neurontin) 300 mg BID PO Last administered on 10/28/18 08:47; Admin Dose 300 MG; Start 10/27/18 at 21:00 Levothyroxine Sodium (Synthroid) 137 mcg BEFORE BREAKFAST PO Last administered on 10/28/18 06:28; Admin Dose 137 MCG; Start 10/28/18 at 07:00 Metoprolol Succinate (Toprol Xl) 100 mg BID PO Last administered on 10/28/18 08:47; Admin Dose 100 MG; Start 10/27/18 at 21:00 Potassium Chloride (Klor-Con 10) 10 meq DAILY PO Last administered on 10/28/18 08:48; Admin Dose 10 MEQ; Start 10/28/18 at 09:00 Ursodiol (Amy) 250 mg TID PO Last administered on 10/27/18at 20:33; Admin Dose 250 MG; Start 10/27/18 at 21:00 Warfarin Sodium (Coumadin) 10 mg DAILY@1700 PO Last administered on 10/27/18at 20:33; Admin Dose 10 MG; Start 10/27/18 at 20:00 Hydralazine HCl (Apresoline) 10 mg Q4H PRN IV SBP >170; Start 10/27/18 at 19:30 IV Flush (NS 3 ml) 3 ml PER PROTOCOL IV ; Start 10/27/18 at 19:30 Ondansetron HCl (Zofran Inj) 4 mg Q6H PRN IV NAUSEA/VOMITING; Start 10/27/18 at 19:30 Nitroglycerin (Nitroglycerin (Sl Tab) 0.4 Mg) 1 tab Q5M PRN SL .CHEST PAIN Last administered on 10/27/18at 23:43; Admin Dose 1 TAB; Start 10/27/18 at 19:30 Acetaminophen (Tylenol Tab) 650 mg Q6H PRN PO .PAIN 1-3 OR TEMP; Start 10/27/18 at 19:30 Docusate Sodium (Colace) 100 mg Q12H PRN PO .CONSTIPATION; Start 10/27/18 at 19:30 Magnesium Hydroxide (Milk Of Mag) 30 ml DAILY PRN PO .CONSTIPATION; Start 10/27/18 at 19:30 Pantoprazole (Protonix Tab) 40 mg DAILY@06 PO Last administered on 10/28/18at 05:52; Admin Dose 40 MG; Start 10/28/18 at 06:00 Ketorolac Tromethamine (Toradol) 15 mg Q6H PRN IV PAIN Last administered on 10/28/18at 05:52; Admin Dose 15 MG; Start 10/27/18 at 19:30; Stop 10/30/18 at 19:29 Acetaminophen/ Hydrocodone Bitart ([place] (10/325)) 1 tab Q8H PRN PO MODERATE PAIN LEVEL 4-6; Start 10/28/18 at 01:00 Pregabalin (Lyrica) 300 mg BID PO Last administered on 10/28/18at 08:48; Admin Dose 300 MG; Start 10/28/18 at 09:00 Clonidine (Catapres) 0.1 mg BID PRN PO ELEVATED SYSTOLIC BP; Start 10/28/18 at 01:00 Naproxen (Naprosyn) 500 mg BID PO Last administered on 10/28/18at 10:48; Admin Dose 500 MG; Start 10/28/18 at 10:30 KATHERINE BRADY MD Oct 28, 2018 12:11
[2018-10-28] MEDS ORDERED: NAPR-985 PO (16:08)
--- NOTE | 2018-10-28 16:10 | PDOCDIS ---
Discharge Instructions DIAGNOSIS Discharge Diagnosis 1. Acute chest pain, musculoskeletal 2. Chronic Diastolic heart failure 3. HTN- stable 4. h/o DVT 5. CAD 6. Hypothyroidism 7. General anxiety disorder 8. obesity CONDITION [id number] Patient Condition: [id number] Stable HOME CARE INSTRUCTIONS: [id number] Diet Instructions: [id number] Low Fat /Cholesterol ACTIVITY: [id number] Activity Restrictions: [id number] No Restrictions FOLLOW UP/APPOINTMENTS Follow-up Plan 1. Follow up with your primary care physician in 1-2 weeks 2. Follow up with Cardiology in 2 weeks. If you would like to be seen by Dr. Rendon, please call his office to schedule an appointment 3. Continue all medications as prescribed 4 You were started on Naproxen to help with muscle discomfort of your left chest wall 5. If experiencing any concerning symptoms, please go to the nearest emergency department KATHERINE BRADY MD Oct 28, 2018 16:10
--- NOTE | 2018-10-28 17:49 | DS ---
Date/Time of Note Date/Time of Note DATE: 10/28/18 TIME: 17:46 Discharge Summary Admission/Discharge Info Admit Date/Time Oct 27, 2018 at 18:46 Discharge Date/Time 10/28/18 Discharge Diagnosis 1. Acute chest pain, musculoskeletal 2. Chronic Diastolic heart failure 3. HTN- stable 4. h/o DVT 5. CAD 6. Hypothyroidism 7. General anxiety disorder 8. obesity Patient Condition: Stable Hx of Present Illness 68 yo F with PMH CAD, HTN, chronic neuropathy, and CHF presented to the ED secondary to worsening chest pain for the past month. Patient states she has been experiencing left sided chest pain, radiating at times to the right chest wall with associated shortness of breath. Describes as pressure like and moderate in nature. She went to see her Service Desk Team Lead, Dr. Gutierrez today but decided to come to the ED before she was able to talk to him. Patient denies any nausea, vomiting, abdominal pain, urinary issues, dizziness, or LOC. Family was at bedside as well and assisting with history. Hospital Course Patient was admitted for ACS workup and was determined to be negative. Patient troponins were negative, EKG negative for ST changes. Patient was complaining of reproducible left sided chest pain which was relieved with Toradol and Naproxen. She admitted to heavy lifting and increase in activity prior to symptoms starting 1 month ago. Patients presenting symptoms improved and she was discharged home in good condition. Home Meds Active Scripts Naproxen* (Naprosyn*) 500 Mg Tablet, 500 MG PO BID for 14 Days, #28 TAB Prov:KATHERINE BRADY MD 10/28/18 Reported Medications Hydrocodone/Acetaminophen ([place] 10-325 Tablet) 1 Each Tablet, 1 EACH PO Q8, TAB 10/27/18 Pregabalin* (Lyrica*) 300 Mg Capsule, 300 MG PO BID, CAP 10/27/18 Atorvastatin* (Atorvastatin*) 40 Mg Tablet, 40 MG PO QHS, #30 TAB 10/27/18 Potassium Chloride* (K-Dur*) 10 Meq Tab.prt.sr, 10 MEQ PO DAILY, TAB 10/27/18 Metoprolol Succinate* (Toprol XL*) 100 Mg Tab.sr.24h, 100 MG PO BID, #30 TAB 10/27/18 Furosemide* (Lasix*) 20 Mg Tablet, 20 MG PO DAILY, TAB 10/27/18 Warfarin Sodium* (Coumadin*) 10 Mg Tablet, 10 MG PO DAILY, TAB 10/27/18 Hydralazine Hcl* (Hydralazine Hcl*) 25 Mg Tab, 25 MG PO TID PRN for ELEVATED BLOOD PRESSURE, #60 TAB 10/27/18 Benazepril-Hydrochlorothiazide (Benazepril-Hydrochlorothiazide) 20-12.5 Mg Tablet, 1 TAB PO DAILY, #30 TAB 10/27/18 Clonidine Hcl* (Clonidine Hcl*) 0.1 Mg Tab, 0.1 MG PO BID PRN for ELEVATED BLOOD PRESSURE, TAB 10/27/18 Cyclosporine (RESTASIS) 1 Each Droperette, 1 DROP BOTH EYES Q12, #1 BOX 10/27/18 Gabapentin* (Gabapentin*) 300 Mg Capsule, 300 MG PO BID, #60 CAP 10/27/18 Ursodiol* (Ursodiol*) 250 Mg Tablet, 250 MG PO TID, TAB 10/27/18 Duloxetine Hcl* (Duloxetine Hcl*) 60 Mg Capsule.dr, 60 MG PO DAILY, #30 CAP 10/27/18 Levothyroxine Sodium* (Levoxyl*) 137 Mcg Tablet, 137 MCG PO BEFORE BREAKFAST, #30 TAB 10/27/18 Discontinued Reported Medications Cilostazol* (Cilostazol*) 100 Mg Tablet, 100 MG PO BID, TAB 09/28/17 Duloxetine Hcl* (Duloxetine Hcl*) 60 Mg Capsule.dr, 60 MG PO DAILY, #30 CAP 09/28/17 Pregabalin* (Lyrica*) 300 Mg Capsule, 300 MG PO NEEDED, CAP 09/28/17 Pregabalin* (Lyrica*) 200 Mg Capsule, 200 MG PO NEEDED, CAP 09/28/17 Rosuvastatin Calcium* (Crestor*) 20 Mg Tablet, 20 MG PO QHS, #30 TAB 09/28/17 Hydrocodone/Acetaminophen ([place] 10-325 Tablet) 1 Each Tablet, 1 EACH PO NEEDED, TAB 09/28/17 Gabapentin* (Gabapentin*) 300 Mg Capsule, 300 MG PO DAILY, #60 CAP 09/28/17 Metoprolol Succinate* (Toprol XL*) 100 Mg Tab.sr.24h, 100 MG PO DAILY, #30 TAB 09/28/17 Benazepril Hcl* (Benazepril Hcl*) 10 Mg Tablet, 10 MG PO DAILY, #30 TAB 09/28/17 Famotidine* (Famotidine*) 40 Mg Tablet, 40 MG PO HS, #30 TAB 09/28/17 Ibuprofen* (Ibuprofen*) 600 Mg Tablet, 600 MG PO Q6H, TAB 09/28/17 Furosemide* (Furosemide*) 40 Mg Tablet, 40 MG PO DAILY, TAB 09/28/17 Warfarin Sodium* (Coumadin*) 10 Mg Tablet, 10 MG PO DAILY, TAB 09/28/17 Clonidine Hcl* (Clonidine Hcl*) 0.1 Mg Tab, 0.1 MG PO DAILY PRN for NEEDED, TAB 09/28/17 Potassium Chloride* (K-Dur*) 10 Meq Tab.prt.sr, 10 MEQ PO DAILY, TAB 09/28/17 Discontinued Scripts Oxycodone HCl/Acetaminophen (Percocet 5-325 mg Tablet) 1 Each Tablet, 1 EACH PO TID PRN for PAIN LEVEL 6-10, #9 TAB Prov:LUÍS GOLDEN MD 10/09/18 Ondansetron Hcl* (Zofran*) 4 Mg Tablet, 4 MG PO Q8H PRN for NAUSEA AND/OR VOMITING, #30 TAB Prov:LUÍS GOLDEN MD 10/09/18 Cephalexin* (Keflex*) 500 Mg Capsule, 500 MG PO QID for 5 Days, CAP Prov:LUÍS GOLDEN MD 10/09/18 Naproxen* (Naprosyn*) 500 Mg Tablet, 500 MG PO BID PRN for PAIN AND/OR INFLAMMA TION, #30 TAB Prov:LUÍS GOLDEN MD 10/09/18 Diphenhydramine Hcl/Zinc Acet (Benadryl Itch Stopping Crm) 28.3 Gm Cream.gm., 1 APPLIC TP TID, #1 TUB Prov:JAYCE BLAIR PA-C 12/31/17 Tramadol Hcl* (Ultram*) 50 Mg Tablet, 50 MG PO Q6H PRN for PAIN, #10 TAB Prov:BERT LAMB MD 09/28/17 Follow-up Plan 1. Follow up with your primary care physician in 1-2 weeks 2. Follow up with Cardiology in 2 weeks. If you would like to be seen by Dr. Rendon, please call his office to schedule an appointment 3. Continue all medications as prescribed 4 You were started on Naproxen to help with muscle discomfort of your left chest wall 5. If experiencing any concerning symptoms, please go to the nearest emergency department Primary Care Provider Not On Staff Doctor Time spent on discharge: > 30 minutes Pending Labs Laboratory Tests Test 10/27/18 22:55 10/28/18 05:30 Creatine Kinase 211 IU/L (23-200) 192 IU/L (23-200) Creatine Kinase Index 0.7 0.7 Creatinine Kinase MB 1.48 ng/ml (0.0-2.4) 1.25 ng/ml (0.0-2.4) (Mass) Troponin I < 0.012 < 0.012 ng/ml (0.000-0.120) ng/ml (0.000-0.120) White Blood Count 7.4 10^3/ul (4.8-10.8) Red Blood Count 4.48 10^6/ul (4.20-5.40) Hemoglobin 12.7 g/dl (12.0-16.0) Hematocrit 40.1 % (37.0-47.0) Mean Corpuscular Volume 89.5 fl (82.0-101.0) Mean Corpuscular 28.3 pg (29.0-33.0) Hemoglobin Mean Corpuscular 31.7 g/dl (32.0-37.0) Hemoglobin Concent Red Cell Distribution 13.7 % (11.5-14.5) Width Platelet Count 193 10^3/UL (140-415) Mean Platelet Volume 13.1 fl (7.4-10.4) Immature Granulocytes % 0.300 % (0.001-0.429) Neutrophils % 56.1 % (39.0-77.0) Lymphocytes % 31.1 % (15.0-51.0) Monocytes % 7.8 % (0.0-11.0) Eosinophils % 3.9 % (0.0-7.0) Basophils % 0.8 % (0.0-2.0) Nucleated Red Blood Cells 0.0 /100WBC (0.0-0.0) % Immature Granulocytes # 0.020 10^3/ul (0.0-0.031) Neutrophils # 4.2 10^3/ul (1.6-7.5) Lymphocytes # 2.3 10^3/ul (0.8-2.9) Monocytes # 0.6 10^3/ul (0.3-0.9) Eosinophils # 0.3 10^3/ul (0.0-0.5) Basophils # 0.1 10^3/ul (0.0-0.1) Nucleated Red Blood Cells 0.0 10^3/ul (0.0-0.0) # Prothrombin Time 19.1 Sec (11.9-14.9) Prothrombin Time Ratio 1.5 INR International 1.60 Normalized Ratio Sodium Level 141 mmol/L (135-144) Potassium Level 3.7 mmol/L (3.5-5.1) Chloride Level 107 mmol/L (97-110) Carbon Dioxide Level 27 mmol/L (21-31) Anion Gap 7 (5-13) Blood Urea Nitrogen 13 mg/dl (7-20) Creatinine 0.61 mg/dl (0.44-1.00) Est Glomerular Filtrat > 60 mL/min (>60) Rate mL/min Glucose Level 107 mg/dl (70-220) Hemoglobin A1c 5.5 % (0-5.9) Calcium Level 8.6 mg/dl (8.4-10.2) Magnesium Level 2.2 mg/dl (1.7-2.5) Thyroid Stimulating 1.050 MIU/L (0.465-4.680) Hormone (TSH) KATHERINE BRADY MD Oct 28, 2018 17:49
--- NOTE | 2018-10-28 19:07 | CONS ---
DATE OF ADMISSION: 10/27/2018 DATE OF CONSULTATION: 10/28/2018 TYPE OF CONSULTATION: Cardiology. REASON FOR CONSULTATION: Chest pain, assess for acute coronary syndrome. REQUESTING PHYSICIAN: Paula Maya MD HISTORY OF PRESENT ILLNESS: Ms. Arrington is a very pleasant 68-year-old female with a history of hy pertension, prior DVT, coronary artery disease, hypothyroidism, history of anxiety disorder, morbid o besity and congestive heart failure, who presented with complaints of substernal chest pain. The pat ient states chest pain has been constant for approximately 1 month on the left side of her chest desc ribed as a pressure-like sensation. The patient additionally has some associated shortness of breath . Initially upon arrival in the emergency department, temperature was 99.6, blood pressure 182/93, p ulse 93, respiratory rate 19, satting 98%. The patient's labs were notable white blood cell count of 10.5, hemoglobin 13.5, platelet count 217, sodium of 141, potassium 4.1, creatinine 0.68, BUN 12, tr oponin negative, BNP of 106, INR of 1.52. The patient's chest x-ray revealed no acute cardiopulmonar y disease. The patient's venous ultrasound revealed no sonographic evidence of DVT. The patient's e lectrocardiogram revealed normal sinus rhythm, rate 78, normal axis, normal intervals, with anterosep jyotsna Q's and borderline anterior R-wave progression concerning for prior anterior WA. The patient sub sequently was admitted to floor and since admit to floor was monitored on telemetry revealing only si nus rhythm, no significant arrhythmias or pauses. The patient had blood pressure and heart rat es have been down to 60s. The patient continues to have chest pain. PAST MEDICAL HISTORY: As above in HPI. MEDICATIONS CURRENTLY IN HOSPITAL: 1. Naproxen 500 mg b.i.d. 2. Cymbalta 60 mg daily. 3. Lasix 20 mg daily. 4. Potassium chloride 10 mEq daily. 4. Lyrica. 5. Synthroid. 6. Protonix. 7. Clonidine. 8. Cyclosporine. 9. Neurontin 300 mg b.i.d. 10. Toprol-XL 100 mg b.i.d. 11. Ursodiol. 12. Coumadin 10 mg daily. 13. Hydralazine p.r.n. 14. Sublingual nitroglycerin p.r.n. 15. Tylenol p.r.n. 16. Colace p.r.n. 17. Milk of Magnesia. 18. Toradol 15 mg IV q.6 p.r.n. ALLERGIES: NO KNOWN DRUG ALLERGIES. SOCIAL HISTORY: No current tobacco, EtOH or illicit drug use. FAMILY HISTORY: No history of sudden cardiac or early CAD. REVIEW OF SYSTEMS: As above in HPI. CONSTITUTIONAL: No fevers, chills. PULMONARY: No current shortness of breath. CARDIOVASCULAR: Intermittent chest pain. GASTROINTESTINAL: No vomiting. GENITOURINARY: No hematuria. MUSCULOSKELETAL: Degenerative joint disease. PSYCHIATRIC: The patient has depression. NEUROLOGIC: No documented history of CVA. ENDOCRINE: Hypothyroidism. No documented history of diabetes mellitus. PHYSICAL EXAMINATION: VITAL SIGNS: Temperature of 97.8, blood pressure most recently 132/72, pulse 60, respiratory rate 20 , satting 97%. GENERAL: The patient is alert, awake, complaining of left-sided chest pain. NECK: JVP approximately is 9 cm of water. CHEST: Fair air movement throughout with mildly decreased breath sounds at bases bilaterally. Repro ducible chest pain on palpation on left side of the chest. HEART: Regular rate and rhythm. Normal S1, S2, I/ systolic murmur, nondisplaced PMI. ABDOMEN: Positive bowel sounds, soft. EXTREMITIES: Mild nonpitting edema, 1+ pulses bilateral posterior tibial, dorsalis pedis. LABORATORY DATA: Most recently from today, sodium 141, potassium 3.7, creatinine 0.6, BUN 13. Tropo hugo negative x3. TSH of 1.05. White blood cell count 7.4, hemoglobin 12.7, platelet count of 193. IMAGING STUDIES: As above in HPI. No further imaging studies for my review at this time. ELECTROCARDIOGRAM: As above in HPI. No further electrocardiograms for my review at this time. IMPRESSION: 1. Chest pain, likely musculoskeletal in nature, reproducible on palpation with negative troponin x3 , question of costochondritis. 2. Abnormal electrocardiogram with inferior Q's. Assess for prior acute coronary syndrome. 3. History of congestive heart failure with previously preserved EF. 4. Hypertension, reasonable control. 5. Bradycardia, intermittent, mild. 6. Anxiety. 7. Hypothyroidism. 8. Very mildly increased BNP. RECOMMENDATIONS: 1. At this time, we would maintain the patient on telemetry monitoring to follow rhythm and rates cl osely. 2. Continue the patient's Lasix, following volume status closely. 3. We will continue the patient's naproxen that has been started and follow symptomatology closely a nd we will continue to give it to round the clock and follow symptoms. 4. We will up patient's 2D echo to further assess ejection fraction, wall motion and major valve abn ormalities. 5. Continue the patient's current Toprol and we will additionally consider initiation of oral nitrat es to assure the patient has no component of cardiac chest pain. 6. We will increase the patient's Coumadin in order to get her therapeutic level. 7. Continue the patient's Lipitor and check a fasting lipid panel and adjust it accordingly. 8. We will give Toradol for breakthrough chest pain. 9. Check serial EKGs, assess for ongoing changes, thus repeat EKG in the morning, EKG for any compla ints of chest pain or change in rhythm. Thank you for allowing me to take part in the care of this patient. I will continue to follow her al melvin very closely with you with further recommendations will be made as the patient progresses through her inpatient hospital clinical course. Dictated By: SUZY RUELAS/TASIA Conf#: [id number] DID#: [id number] CC: PAULA MAYA MD;*EndCC*
[2018-10-28] MEDS: ISOSORBIDE DINITRATE 10 MG TAB PO SCH (20:29)
[2018-10-28] MEDS: WARFARIN 10 MG TAB PO SCH (20:30)
[2018-10-28] MEDS: ATORVASTATIN 40 MG TAB PO SCH (20:30)
--- NOTE | 2018-10-28 22:22 | RADRPT ---
Echocardiogram Report Patient Name: MADISYN SANCHEZPatient ID: [id number] : 1950 (68y 1m)Study Date: 10/28/2018 8:16:47 AM Gender: FAccession #: [id number] Tech: Aristeo Ibarra [facility] Location: [address] Ref.Physician: KATHERINE BRADY Height(Cm): BSA: Weight(Kg): Quality: Technically Difficult StudyOrder Physician: KATHERINE BRADY Account #: Procedures: Echocardiographic Report: Transthoracic echocardiogram with complete 2D, M-Mode, and doppler examination. Indications: Evaluate Left Ventricular function, and Chest Pain. Measurements: 2D/M Mode Doppler Measurement Value Normal Range Measurement Value Normal Range LVIDd 2D 4.2 [ 3.8 - 5.2 ] cm AV Peak Jhoan 1.3 [ 100.0 - 170.0 ] cm/sec LVIDs 2D 3.8 [ 2.2 - 3.5 ] cm AV Peak PG 7.0 [ 2.0 - 9.0 ] mmHg LVPWd 2D 0.8 [ 0.6 - 0.9 ] cm LVOT Peak Jhoan 1.1 [ 70.0 - 110.0 ] cm/sec IVSd 2D 1.0 [ 0.6 - 0.9 ] cm LVOT Peak PG 5.0 [ 2.0 - 6.0 ] mmHg AoR Diam 2D 2.6 [ 2.3 - 3.1 ] cm MV E Peak Jhoan 0.8 [ 60.0 - 130.0 ] cm/sec EDV 2D 79.5 [ 46.0 - 106.0 ] ml MV A Peak Jhoan 0.9 [ 100.0 - 120.0 ] cm/sec ESV 2D 61.2 [ 14.0 - 42.0 ] ml MV E/A 0.9 [ 0.8 - 1.5 ] ratio EF 2D 23.0 [ 54.0 - 74.0 ] percent MV Decel Time 225 [ 104 - 258 ] msec LA Dimen 2D 2.8 [ 2.7 - 3.8 ] cm Lat E` Jhoan 0.1 [ 10.0 - 15.0 ] cm/sec Lateral E/E` 9.8 [ 1.0 - 2.0 ] ratio MV E/A 0.9 [ 0.8 - 1.5 ] ratio TR Peak Jhoan 2.1 [ 100.0 - 280.0 ] cm/sec TR Peak PG 17.0 mmHg RVSP 25.0 [ 10.0 - 36.0 ] mmHg Findings: Left Ventricle: Normal left ventricular systolic function. Normal left ventricular cavity size. Ejection fraction is visually estimated at 55 %. Tissue Doppler/Mitral Doppler indices are consistent with impaired relaxation (Stage I diastolic dysfunction). Right Ventricle: Normal right ventricular size. Normal right ventricular systolic function. Not well visualized. Left Atrium: Not well visualized. Right Atrium: Not well visualized. Mitral Valve: Mitral valve is not well visualized. Mild mitral leaflet calcification. Mild mitral annular calcification. Trace mitral regurgitation. Aortic Valve: Aortic valve not well visualized. No hemodynamically significant aortic stenosis by doppler. Aortic cusps appear mildly calcified. Mild aortic valve regurgitation. Tricuspid Valve: Tricuspid valve not well visualized. There is trace tricuspid regurgitation. Pulmonic Valve: Pulmonic valve not well visualized. Pericardium: Normal pericardium with no significant pericardial effusion. Aorta: Not well visualized. IVC: Dilated IVC with respiratory collapse consistent with elevated right atrial pressure. Conclusions: Grossly Normal left ventricular systolic function. Normal left ventricular cavity size. Ejection fraction is visually estimated at 55 %. Tissue Doppler/Mitral Doppler indices are consistent with impaired relaxation (Stage I diastolic dysfunction). Mitral valve is not well visualized. Mild mitral leaflet calcification. Mild mitral annular calcification. Trace mitral regurgitation. Aortic valve not well visualized. No hemodynamically significant aortic stenosis by doppler. Aortic cusps appear mildly calcified. Mild aortic valve regurgitation. Tricuspid valve not well visualized. There is trace tricuspid regurgitation. Electronically Signed By: Tomasz Rendon 2018-10-28 22:22:00 PDT
[2018-10-29] VITALS (9 sets, daily range): BP systolic 109–141; BP diastolic 55–74; PULSE 53–76; RESP 18–20
[2018-10-29] MEDS: PANTOPRAZOLE (EC) 40 MG TAB PO SCH (06:06)
[2018-10-29] MEDS: LEVOTHYROXINE 137 MCG TAB PO SCH (06:10)
[2018-10-29] MEDS ORDERED: PREGABALIN 100 MG CAP PO SCH (09:00)
[2018-10-29] MEDS ORDERED: METOPROLOL (XL) 50 MG TAB PO SCH (09:00)
[2018-10-29] MEDS: ISOSORBIDE DINITRATE 10 MG TAB PO SCH ×2 (09:24→13:52)
[2018-10-29] MEDS: FUROSEMIDE 20 MG TAB PO SCH (09:29)
[2018-10-29] MEDS: URSODIOL 250 MG TAB PO SCH ×2 (09:29→13:51)
[2018-10-29] MEDS: DULOXETINE 30 MG CAP DR PO SCH (09:30)
[2018-10-29] MEDS: GABAPENTIN 300 MG CAP PO SCH (09:30)
[2018-10-29] MEDS: NAPROXEN 500 MG TAB PO SCH (09:30)
[2018-10-29] MEDS: POTASSIUM CHLORIDE (SR) 10 MEQ TAB PO SCH (09:30)
--- NOTE | 2018-10-29 11:39 | RADRPT ---
Vent Rate: 57 bpm RR Interval: 1048 msec [place] Interval: 181 msec QRS Duration: 81 msec QT Interval: 444 msec QTC Interval: 434 msec P-R-T [place]: 18 - 20 - 25 degrees Sinus rhythm...normal P axis, V-rate 50- 99 Low voltage, precordial leads...precordial leads <1.0mV Electronically Signed By: Rogelio Morris
--- NOTE | 2018-10-29 12:08 | PN ---
Date/Time of Note Date/Time of Note DATE: 10/29/18 TIME: 12:04 Assessment/Plan VTE Prophylaxis Risk score (from Nsg)>0 risk: 3 SCD applied (from Ns): No SCD contraindicated: low risk/ambulating Pharmacological prophylaxis: NA/contraindicated Pharm contraindication: low risk/ambulating Lines/Catheters IV Catheter Type (from Nrsg): Saline Lock Assessment/Plan Assessment/Plan 1. Acute chest pain- improving - appears more musculoskeletal given reproducible. Relief with Toradol and improving on naproxen - atypical in nature given 1 month duration and present at rest - negative serial trops - EKG negative for acute ST changes - Dr. Gutierrez made aware of patients admission. Appreciate consultation from Dr. Rendon - nitro, aspirin, and statin on board - ECHO noted 2. Diastolic heart failure - appears compensated - BNP nl - CXR negative for pulmonary edema or signs of congestion - continue Lasix 3. HTN- stable - elevated upon presentation - continue on BB 4. h/o DVT - on Coumadin - continue dosing daily 5. CAD - continue current medications 6. Hypothyroidism - TSH nl - continue levothyroxine 7. General anxiety disorder - continue Cymbalta 8. Morbidly obese - lifestyle modification counseling 9. Disposition - Medically stable for discharge home. Result Diagram: 10/28/18 0530 10/28/18 0530 Results 24hrs Laboratory Tests Test 10/29/18 05:25 Troponin I < 0.012 Triglycerides Level 65 Cholesterol Level 169 LDL Cholesterol, Calculated 110 HDL Cholesterol 46 Cholesterol/HDL Ratio 3.6 Subjective 24 Hr Interval Summary Free Text/Dictation Patient states pain is better and currently ambulating around unit without any issues. no acute overnight event. Exam/Review of Systems Exam Vitals Vital Signs Date Temp Pulse Resp B/P (MAP) Pulse Ox O2 O2 Flow FiO2 Time Delivery Rate 10/29/18 97.4 53 20 111/58 97 Room Air 11:01 (75) Intake and Output 10/28/18 10/28/18 10/29/18 1515:00 23:00 07:00 IntakeIntake Total 720 ml 240 ml BalanceBalance 720 ml 240 ml Exam General: Ambulating around unit with walker. No acute distress Neck: Supple Chest: mild tender left chest wall. no palpable masses or noted skin abnormalities Lungs: Clear to auscultation bilaterally but diminished, no crackles rales or wheezing Heart: Normal S1-S2, Regular rhythm and rate. No murmur, S3, or S4 Abdomen: Soft , nontender, nondistended , bowel sounds are present. No guarding no rebound tenderness Extremities: lower extremity swelling, chronic venous stasis changes Results Results 24hrs Laboratory Tests Test 10/29/18 05:25 Troponin I < 0.012 Triglycerides Level 65 Cholesterol Level 169 LDL Cholesterol, Calculated 110 HDL Cholesterol 46 Cholesterol/HDL Ratio 3.6 Medications Medication Current Medications Atorvastatin Calcium (Lipitor) 40 mg QHS PO Last administered on 10/28/18 20:30; Admin Dose 40 MG; Start 10/27/18 at 21:00 Cyclosporine (Restasis) 1 drop Q12 BOTH EYES Last administered on 10/28/18 20:30; Admin Dose 1 DROP; Start 10/27/18 at 21:00 Duloxetine HCl (Cymbalta) 60 mg DAILY PO Last administered on 10/29/18 09:30; Admin Dose 60 MG; Start 10/28/18 at 09:00 Furosemide (Lasix) 20 mg DAILY PO Last administered on 10/29/18 09:29; Admin Dose 20 MG; Start 10/28/18 at 09:00 Gabapentin (Neurontin) 300 mg BID PO Last administered on 10/29/18 09:30; Admin Dose 300 MG; Start 10/27/18 at 21:00 Levothyroxine Sodium (Synthroid) 137 mcg BEFORE BREAKFAST PO Last administered on 10/29/18 06:10; Admin Dose 137 MCG; Start 10/28/18 at 07:00 Potassium Chloride (Klor-Con 10) 10 meq DAILY PO Last administered on 10/29/18 09:30; Admin Dose 10 MEQ; Start 10/28/18 at 09:00 Ursodiol (Amy) 250 mg TID PO Last administered on 10/29/18 09:29; Admin Dose 250 MG; Start 10/27/18 at 21:00 Warfarin Sodium (Coumadin) 10 mg DAILY@1700 PO Last administered on 10/28/18 20:30; Admin Dose 10 MG; Start 10/27/18 at 20:00 Hydralazine HCl (Apresoline) 10 mg Q4H PRN IV SBP >170; Start 10/27/18 at 19:30 IV Flush (NS 3 ml) 3 ml PER PROTOCOL IV ; Start 10/27/18 at 19:30 Ondansetron HCl (Zofran Inj) 4 mg Q6H PRN IV NAUSEA/VOMITING; Start 10/27/18 at 19:30 Nitroglycerin (Nitroglycerin (Sl Tab) 0.4 Mg) 1 tab Q5M PRN SL .CHEST PAIN Last administered on 10/27/18at 23:43; Admin Dose 1 TAB; Start 10/27/18 at 19:30 Acetaminophen (Tylenol Tab) 650 mg Q6H PRN PO .PAIN 1-3 OR TEMP; Start 10/27/18 at 19:30 Docusate Sodium (Colace) 100 mg Q12H PRN PO .CONSTIPATION; Start 10/27/18 at 19:30 Magnesium Hydroxide (Milk Of Mag) 30 ml DAILY PRN PO .CONSTIPATION; Start 10/27/18 at 19:30 Pantoprazole (Protonix Tab) 40 mg DAILY@06 PO Last administered on 10/29/18at 06:06; Admin Dose 40 MG; Start 10/28/18 at 06:00 Ketorolac Tromethamine (Toradol) 15 mg Q6H PRN IV PAIN Last administered on 10/28/18at 05:52; Admin Dose 15 MG; Start 10/27/18 at 19:30; Stop 10/30/18 at 19:29 Acetaminophen/ Hydrocodone Bitart ([place] (10/325)) 1 tab Q8H PRN PO MODERATE PAIN LEVEL 4-6 Last administered on 10/29/18at 09:29; Admin Dose 1 TAB; Start 10/28/18 at 01:00 Clonidine (Catapres) 0.1 mg BID PRN PO ELEVATED SYSTOLIC BP; Start 10/28/18 at 01:00 Naproxen (Naprosyn) 500 mg BID PO Last administered on 10/29/18 09:30; Admin Dose 500 MG; Start 10/28/18 at 10:30 Isosorbide Dinitrate (Isordil) 10 mg TID PO Last administered on 10/29/18 09:24; Admin Dose 10 MG; Start 10/28/18 at 21:00 Pregabalin (Lyrica) 300 mg BID PO Last administered on 10/29/18 09:28; Admin Dose 300 MG; Start 10/29/18 at 09:00 Metoprolol Succinate (Toprol Xl) 75 mg BID PO ; Start 10/29/18 at 09:00 KATHERINE BRADY MD Oct 29, 2018 12:08
[2018-10-29] MEDS: CYCLOSPORINE 0.05% OPH DROPERETTE BOTH EYES SCH (13:52)
--- NOTE | 2018-10-29 15:01 | DS ---
Date/Time of Note Date/Time of Note DATE: 10/29/18 TIME: 14:59 Discharge Summary Admission/Discharge Info Admit Date/Time Oct 27, 2018 at 18:46 Discharge Date/Time 10/29/18 Discharge Diagnosis 1. Acute chest pain, musculoskeletal 2. Chronic Diastolic heart failure 3. HTN- stable 4. h/o DVT 5. CAD 6. Hypothyroidism 7. General anxiety disorder 8. obesity Patient Condition: Stable Consults Cardiology- Dr. Rendon Hx of Present Illness 68 yo F with PMH CAD, HTN, chronic neuropathy, and CHF presented to the ED secondary to worsening chest pain for the past month. Patient states she has been experiencing left sided chest pain, radiating at times to the right chest wall with associated shortness of breath. Describes as pressure like and moderate in nature. She went to see her [employer] Physical Scientist, Dr. Gutierrez today but decided to come to the ED before she was able to talk to him. Patient denies any nausea, vomiting, abdominal pain, urinary issues, dizziness, or LOC. Family was at bedside as well and assisting with history. Hospital Course Patient was admitted for ACS workup and was determined to be negative. Patient troponins were negative, EKG negative for ST changes. Patient was complaining of reproducible left sided chest pain which was relieved with Toradol and Naproxen. She admitted to heavy lifting and increase in activity prior to symptoms starting 1 month ago. She was evaluated by Cardiology and decided to stay one more night for observation. Patients presenting symptoms improved and she was discharged home in good condition. Home Meds Active Scripts Naproxen* (Naprosyn*) 500 Mg Tablet, 500 MG PO BID for 14 Days, #28 TAB Prov:KATHERINE BRADY MD 10/28/18 Reported Medications Hydrocodone/Acetaminophen ([place] 10-325 Tablet) 1 Each Tablet, 1 EACH PO Q8, TAB 10/27/18 Pregabalin* (Lyrica*) 300 Mg Capsule, 300 MG PO BID, CAP 10/27/18 Atorvastatin* (Atorvastatin*) 40 Mg Tablet, 40 MG PO QHS, #30 TAB 10/27/18 Potassium Chloride* (K-Dur*) 10 Meq Tab.prt.sr, 10 MEQ PO DAILY, TAB 10/27/18 Metoprolol Succinate* (Toprol XL*) 100 Mg Tab.sr.24h, 100 MG PO BID, #30 TAB 10/27/18 Furosemide* (Lasix*) 20 Mg Tablet, 20 MG PO DAILY, TAB 10/27/18 Warfarin Sodium* (Coumadin*) 10 Mg Tablet, 10 MG PO DAILY, TAB 10/27/18 Hydralazine Hcl* (Hydralazine Hcl*) 25 Mg Tab, 25 MG PO TID PRN for ELEVATED BLOOD PRESSURE, #60 TAB 10/27/18 Benazepril-Hydrochlorothiazide (Benazepril-Hydrochlorothiazide) 20-12.5 Mg Tablet, 1 TAB PO DAILY, #30 TAB 10/27/18 Clonidine Hcl* (Clonidine Hcl*) 0.1 Mg Tab, 0.1 MG PO BID PRN for ELEVATED BLOOD PRESSURE, TAB 10/27/18 Cyclosporine (RESTASIS) 1 Each Droperette, 1 DROP BOTH EYES Q12, #1 BOX 10/27/18 Gabapentin* (Gabapentin*) 300 Mg Capsule, 300 MG PO BID, #60 CAP 10/27/18 Ursodiol* (Ursodiol*) 250 Mg Tablet, 250 MG PO TID, TAB 10/27/18 Duloxetine Hcl* (Duloxetine Hcl*) 60 Mg Capsule.dr, 60 MG PO DAILY, #30 CAP 10/27/18 Levothyroxine Sodium* (Levoxyl*) 137 Mcg Tablet, 137 MCG PO BEFORE BREAKFAST, #30 TAB 10/27/18 Discontinued Reported Medications Cilostazol* (Cilostazol*) 100 Mg Tablet, 100 MG PO BID, TAB 09/28/17 Duloxetine Hcl* (Duloxetine Hcl*) 60 Mg Capsule.dr, 60 MG PO DAILY, #30 CAP 09/28/17 Pregabalin* (Lyrica*) 300 Mg Capsule, 300 MG PO NEEDED, CAP 09/28/17 Pregabalin* (Lyrica*) 200 Mg Capsule, 200 MG PO NEEDED, CAP 09/28/17 Rosuvastatin Calcium* (Crestor*) 20 Mg Tablet, 20 MG PO QHS, #30 TAB 09/28/17 Hydrocodone/Acetaminophen ([place] 10-325 Tablet) 1 Each Tablet, 1 EACH PO NEEDED, TAB 09/28/17 Gabapentin* (Gabapentin*) 300 Mg Capsule, 300 MG PO DAILY, #60 CAP 09/28/17 Metoprolol Succinate* (Toprol XL*) 100 Mg Tab.sr.24h, 100 MG PO DAILY, #30 TAB 09/28/17 Benazepril Hcl* (Benazepril Hcl*) 10 Mg Tablet, 10 MG PO DAILY, #30 TAB 09/28/17 Famotidine* (Famotidine*) 40 Mg Tablet, 40 MG PO HS, #30 TAB 09/28/17 Ibuprofen* (Ibuprofen*) 600 Mg Tablet, 600 MG PO Q6H, TAB 09/28/17 Furosemide* (Furosemide*) 40 Mg Tablet, 40 MG PO DAILY, TAB 09/28/17 Warfarin Sodium* (Coumadin*) 10 Mg Tablet, 10 MG PO DAILY, TAB 09/28/17 Clonidine Hcl* (Clonidine Hcl*) 0.1 Mg Tab, 0.1 MG PO DAILY PRN for NEEDED, TAB 09/28/17 Potassium Chloride* (K-Dur*) 10 Meq Tab.prt.sr, 10 MEQ PO DAILY, TAB 09/28/17 Discontinued Scripts Oxycodone HCl/Acetaminophen (Percocet 5-325 mg Tablet) 1 Each Tablet, 1 EACH PO TID PRN for PAIN LEVEL 6-10, #9 TAB Prov:LUÍS GOLDEN MD 10/09/18 Ondansetron Hcl* (Zofran*) 4 Mg Tablet, 4 MG PO Q8H PRN for NAUSEA AND/OR VOMITING, #30 TAB Prov:LUÍS GOLDEN MD 10/09/18 Cephalexin* (Keflex*) 500 Mg Capsule, 500 MG PO QID for 5 Days, CAP Prov:LUÍS GOLDEN MD 10/09/18 Naproxen* (Naprosyn*) 500 Mg Tablet, 500 MG PO BID PRN for PAIN AND/OR INFLAMMATION, #30 TAB Prov:LUÍS GOLDEN MD 10/09/18 Diphenhydramine Hcl/Zinc Acet (Benadryl Itch Stopping Crm) 28.3 Gm Cream.gm., 1 APPLIC TP TID, #1 TUB Prov:JAYCE BLAIR PA-C 12/31/17 Tramadol Hcl* (Ultram*) 50 Mg Tablet, 50 MG PO Q6H PRN for PAIN, #10 TAB Prov:BERT LAMB MD 09/28/17 Follow-up Plan 1. Follow up with your primary care physician in 1-2 weeks 2. Follow up with Cardiology in 2 weeks. If you would like to be seen by Dr. Rendon, please call his office to schedule an appointment 3. Continue all medications as prescribed 4 You were started on Naproxen to help with muscle discomfort of your left chest wall 5. If experiencing any concerning symptoms, please go to the nearest emergency department Primary Care Provider Not On Staff Doctor Time spent on discharge: > 30 minutes Pending Labs Laboratory Tests Test 10/29/18 05:25 Troponin I < 0.012 ng/ml (0.000-0.120) Triglycerides Level 65 mg/dl (0-149) Cholesterol Level 169 mg/dl (100-200) LDL Cholesterol, Calculated 110 mg/dl HDL Cholesterol 46 mg/dl (35-98) Cholesterol/HDL Ratio 3.6 RATIO KATHERINE BRADY MD Oct 29, 2018 15:01
== END 2018-10-29 15:30 | disposition home or self-care (01) ==
LOC: E/R 16:04 → 6WM 18:46
PROVIDERS: ADMIT Internal Medicine; ATTEND Internal Medicine
DX: R07.89 Other chest pain (principal); E78.5 Hyperlipidemia, unspecified; I11.0 Hypertensive heart disease with heart failure; I50.32 Chronic diastolic (congestive) heart failure; I25.10 Atherosclerotic heart disease of native coronary artery without angina pectoris; E03.9 Hypothyroidism, unspecified; F41.1 Generalized anxiety disorder; E66.01 Morbid (severe) obesity due to excess calories; Z68.43 Body mass index [BMI] 50.0-59.9, adult; Z86.718 Personal history of other venous thrombosis and embolism; Z79.01 Long term (current) use of anticoagulants
CPT/HCPCS: 36415; 71045; 80048; 80061; 82550; 82553; 83036; 83735; 83880; 84443; 84484; 85025; 85610; 85730; 93005; 93306; 93970; 97161; 97167; 99285; G0378; J1885

== ENCOUNTER 2018-12-08 13:58 | Emergency (ER) | payer MEDICARE, OTHER ==
[~2018-12-08] VITALS: Ht 152.4 cm; Wt 135.0 kg
[~2018-12-08 13:58] MED LIST changes: +ATOR40TA68 PO; -BENA10TA4 PO; +BENA1TAB13 PO; -CEPH-443 PO; -CILO100T PO; -CRES20 PO; +CYCL1DRO BOTH EYES; -DIPH28.33 TP; -FAMO40TA5 PO; +FURO-110 PO; -FURO40TA4 PO; +HYDR-3671 PO; +HYDR-4011 PO; -IBUP-1542 PO; +LEVO137T26 PO; -LYRI200 PO; -ONDA4TAB8 PO; -OXYC-279 PO; -TRAM50TA PO; +URSO250T10 PO
[2018-12-08 14:22] VITALS: Ht 152.4 cm; Wt 135.0 kg
[2018-12-08] MEDS ORDERED: morphine 4 MG/ML VIAL IV STA (15:53)
[2018-12-08] MEDS ORDERED: SOD CHLORIDE 0.9% 1,000 ML IV STA (15:53)
[2018-12-08] MEDS ORDERED: ONDANSETRON 4 MG INJ IV STA (15:53)
--- NOTE | 2018-12-08 16:09 | ERD ---
ER Documentation Chief Complaint Chief Complaint R sided AP, vomiting started last PM. no diarrhea. no dysuria. HPI 60-year-old female history of CHF, gallstones, on warfarin presenting with right upper quadrant abdominal pain after eating. Has had multiple episodes of this in the past similar to her prior gallstone attacks. Denies any nausea or vomiting. No fever. No diarrhea. Last bowel movement was yesterday. Has not had abdominal surgery in the past. No recent antibiotics or travel. ROS All systems reviewed and are negative except as per history of present illness. Medications Home Meds Active Scripts Naproxen* (Naprosyn*) 500 Mg Tablet, 500 MG PO BID for 14 Days, #28 TAB Prov:KATHERINE BRADY MD 10/28/18 Reported Medications Hydrocodone/Acetaminophen ([place] 10-325 Tablet) 1 Each Tablet, 1 EACH PO Q8, TAB 10/27/18 Pregabalin* (Lyrica*) 300 Mg Capsule, 300 MG PO BID, CAP 10/27/18 Atorvastatin* (Atorvastatin*) 40 Mg Tablet, 40 MG PO QHS, #30 TAB 10/27/18 Potassium Chloride* (K-Dur*) 10 Meq Tab.prt.sr, 10 MEQ PO DAILY, TAB 10/27/18 Metoprolol Succinate* (Toprol XL*) 100 Mg Tab.sr.24h, 100 MG PO BID, #30 TAB 10/27/18 Furosemide* (Lasix*) 20 Mg Tablet, 20 MG PO DAILY, TAB 10/27/18 Warfarin Sodium* (Coumadin*) 10 Mg Tablet, 10 MG PO DAILY, TAB 10/27/18 Hydralazine Hcl* (Hydralazine Hcl*) 25 Mg Tab, 25 MG PO BID PRN for ELEVATED BLOOD PRESSURE, #60 TAB 10/27/18 Benazepril-Hydrochlorothiazide (Benazepril-Hydrochlorothiazide) 20-12.5 Mg Tablet, 1 TAB PO DAILY, #30 TAB 10/27/18 Clonidine Hcl* (Clonidine Hcl*) 0.1 Mg Tab, 0.1 MG PO BID PRN for ELEVATED BLOOD PRESSURE, TAB 10/27/18 Cyclosporine (RESTASIS) 1 Each Droperette, 1 DROP BOTH EYES Q12, #1 BOX 10/27/18 Gabapentin* (Gabapentin*) 300 Mg Capsule, 300 MG PO BID, #60 CAP 10/27/18 Ursodiol* (Ursodiol*) 250 Mg Tablet, 250 MG PO TID, TAB 10/27/18 Duloxetine Hcl* (Duloxetine Hcl*) 60 Mg Capsule.dr, 60 MG PO DAILY, #30 CAP 10/27/18 Levothyroxine Sodium* (Levoxyl*) 137 Mcg Tablet, 137 MCG PO BEFORE BREAKFAST, #30 TAB 10/27/18 Allergies Allergies: Coded Allergies: No Known Drug Allergies (Verified Allergy, Mild, 12/08/18) PMhx/Soc History of Surgery: Yes (BILATERAL KNEE SURGERY 2004) Anesthesia Reaction: No Hx Neurological Disorder: Yes (NEUROPATHY) Hx Respiratory Disorders: No Hx Cardiac Disorders: Yes (HTN, CHF) Hx Psychiatric Problems: No Hx Miscellaneous Medical Probl: Yes (OBESITY, CAD, CHF , HTN , CHRONIC NEUROPATHY, DECREASE VISION, B TKR) Hx Alcohol Use: No Hx Substance Use: No Hx Tobacco Use: No Smoking Status: Former smoker Physical Exam Vitals Vital Signs Date Temp Pulse Resp B/P (MAP) Pulse Ox O2 O2 Flow FiO2 Time Delivery Rate 12/08/18 99.1 87 16 135/87 99 14:22 (103) Physical Exam Const: No acute distress Head: Atraumatic Eyes: Normal Conjunctiva ENT: Normal External Ears, Nose and Mouth. Neck: Full range of motion. No meningismus. Resp: Clear to auscultation bilaterally Cardio: Regular rate and rhythm, no murmurs Abd: Soft, mild right upper quadrant tender, non distended. Normal bowel sounds Skin: No petechiae or rashes Back: No midline or flank tenderness Ext: No cyanosis, or edema Neur: Awake and alert Psych: Normal Mood and Affect Result Diagram: 12/08/18 1540 12/08/18 1540 Results 24 hrs Laboratory Tests Test 12/08/18 15:40 White Blood Count 8.4 10^3/ul Red Blood Count 3.10 10^6/ul Hemoglobin 8.5 g/dl Hematocrit 28.4 % Mean Corpuscular Volume 91.6 fl Mean Corpuscular Hemoglobin 27.4 pg Mean Corpuscular Hemoglobin Concent 29.9 g/dl Red Cell Distribution Width 14.9 % Platelet Count 196 10^3/UL Mean Platelet Volume 13.0 fl Immature Granulocytes % 0.100 % Neutrophils % 70.0 % Lymphocytes % 19.3 % Monocytes % 7.0 % Eosinophils % 3.2 % Basophils % 0.4 % Nucleated Red Blood Cells % 0.0 /100WBC Immature Granulocytes # 0.010 10^3/ul Neutrophils # 5.9 10^3/ul Lymphocytes # 1.6 10^3/ul Monocytes # 0.6 10^3/ul Eosinophils # 0.3 10^3/ul Basophils # 0.0 10^3/ul Nucleated Red Blood Cells # 0.0 10^3/ul Sodium Level 142 mmol/L Potassium Level 4.2 mmol/L Chloride Level 108 mmol/L Carbon Dioxide Level 29 mmol/L Anion Gap 5 Blood Urea Nitrogen 20 mg/dl Creatinine 0.66 mg/dl Est Glomerular Filtrat Rate mL/min > 60 mL/min Glucose Level 112 mg/dl Calcium Level 8.7 mg/dl Total Bilirubin 0.3 mg/dl Direct Bilirubin 0.00 mg/dl Indirect Bilirubin 0.3 mg/dl Aspartate Amino Transf (AST/SGOT) 23 IU/L Alanine Aminotransferase (ALT/SGPT) 23 IU/L Alkaline Phosphatase 85 IU/L Total Protein 6.4 g/dl Albumin 3.6 g/dl Globulin 2.80 g/dl Albumin/Globulin Ratio 1.28 Lipase 62 U/L Current Medications Medications Dose Sig/Timbo Start Time Status Last (Trade) Ordered Route PRN Stop Time Admin Dose Reason Admin Sodium 1,000 ml @ Q1H STAT 12/08/18 DC Chloride 1,000 mls/hr IV 15:53 12/08/18 15:56 Morphine 4 mg ONCE STAT 12/08/18 DC 12/08/18 Sulfate IV 15:53 16:04 (morphine) 12/08/18 15:54 Ondansetron 4 mg ONCE STAT 12/08/18 DC 12/08/18 HCl (Zofran IV 15:53 16:04 Inj) 12/08/18 15:54 Procedures/MDM Patient presents with abdominal pain, without nausea and vomiting, has flatus , BM afebrile Patient is well appearing. Non acute abdominal exam. . Low suspicion for mesenteric ischemia given pain not out of proportion to exam, ultrasound with cholelithiasis with no evidence of cholecystitis on labs or ultrasound. Patient remains PO tolerant. Serial abdominal exam without increase in abdominal pain. Given exam and history, low suspicion for acute abdominal process, such as acute cholecystitis, pancreatitis, perforated viscus, atypical appendicitis or torsion. Extensive conversation about return precautions and need for follow-up. Pain is improved tolerating p.o. has a surgery appointment in 1 week we will follow-up Departure Diagnosis: Primary Impression: Cholelithiasis Cholelithiasis location: gallbladder Cholecystitis presence: without cholecystitis Biliary obstruction: without biliary obstruction Qualified Codes: K80.20 - Calculus of gallbladder without cholecystitis without obstruction Condition: Stable BERT MATTHEWS MD Dec 08, 2018 16:09
[2018-12-08 18:04] VITALS: BP 136/84; PULSE 89; RESP 16
== END 2018-12-08 18:05 | disposition home or self-care (01) ==
LOC: E/R 13:58
DX: K80.20 Calculus of gallbladder without cholecystitis without obstruction (principal); I50.9 Heart failure, unspecified; I25.10 Atherosclerotic heart disease of native coronary artery without angina pectoris; I11.0 Hypertensive heart disease with heart failure; E66.9 Obesity, unspecified; Z79.01 Long term (current) use of anticoagulants; Z87.891 Personal history of nicotine dependence
CPT/HCPCS: 36415; 71045; 76705; 80053; 83690; 85025; 96374; 96375; 99285; J2270; J2405; J7030